=== PATIENT | male | born 1965 | race Caucasian/White ===

== ENCOUNTER 2017-05-03 09:48 | Inpatient (IN) | payer BC ==
[2017-05-03] VITALS (45 sets, daily range): BP systolic 82–129; BP diastolic 37–76
[~2017-05-03] VITALS: Ht 200.7 cm; Wt 235.4 kg
[2017-05-03] MEDS ORDERED: LOSA1TAB22 PO (10:12)
[2017-05-03] MEDS ORDERED: METF10002 PO (10:12)
[2017-05-03] MEDS ORDERED: GLYB5TAB3 PO ×2 (10:12)
--- NOTE | 2017-05-03 10:20 | NUR ---
ARRIVAL PATIENT ARRIVED TO ED5 AMBULATORY FROM URGENT CARE, SENT FOR PERIRECTAL ABCESS,FEVER AND SHORTNESS OF BREATH FOR THE PAST SEVERAL DAYS, URGENT CARE UNABLE TO ASSESS ABSCESS, SENT TO ED FOR FURTHER EVAL.
--- NOTE | 2017-05-03 10:28 | NUR ---
BLOOD CULTURE LAB IN ROOM TO DRAWN BLOOD CULTURES.
[2017-05-03] MEDS ORDERED: ZOSYN 4.5 GRAM VIAL 4.5 GM in NS 100ML 100 ML IV ONE (10:30)
[2017-05-03 10:41] LABS: BASOPHIL % 0.1 % (0.0-0.2); HEMOGLOBIN 16.8 g/dL (13.9-16.3); LYMPHOCYTES # 1.1 10^3/uL (1.0-4.8); LYMPHOCYTES % 3.7 % (24.0-44.0); MEAN CELL HGB 25.2 pg (26-34); MEAN CORP VOLUME 78.7 fL (78-100); MEAN PLATELET VOLUME 11.4 fL (7.8-11.0); MONOCYTES # 2.3 10^3/uL (0.3-0.8); MONOCYTES % 8.1 % (5.0-12.0); NEUTROPHIL # 24.9 10^3/uL (1.8-7.7); NEUTROPHILS % 87.4 % (41.0-85.0); RED CELL DISTRIBUTION WIDTH 18.7 % (11.5-14.5)
[2017-05-03 10:42] LABS: WHITE BLOOD CELL 28.5 10^3/uL (4.5-11.0)
[2017-05-03] MEDS ORDERED: NS 1000ML 1,000 ML ONE ×5 (10:44→14:23)
[2017-05-03] MEDS ORDERED: ZOSYN 4.5 GM IV ONE (10:44)
[2017-05-03] MEDS ORDERED: NS 100ML 100 ML IV ONE (10:44)
[2017-05-03] MEDS ORDERED: NS 1000ML 1,000 ML IV STA ×2 (10:53→12:50)
--- NOTE | 2017-05-03 10:55 | NUR ---
DR RANCHO LIRA ON PHONE WITH DR VICKERS
[2017-05-03 10:58] LABS: ABG PH 7.452 (7.350-7.450); BE(B) 2.2 mmol/L (-2.0-2.0); HCO3act 25.9 mmol/L (22.0-26.0); pO2 72.5 mmHg (75.0-100.0)
[2017-05-03 11:00] LABS: CALCIUM 9.2 mg/dL (8.4-10.5); CARBON DIOXIDE 24.1 mmol/L (20.0-32)
--- NOTE | 2017-05-03 11:21 | NUR ---
DR RANCHO VICKERS IN THE ED AT THIS TIME
[2017-05-03] MEDS ORDERED: NS 1000ML 1,000 ML IV ONE (11:30)
[2017-05-03] MEDS ORDERED: MOTRIN ONE (11:40)
--- NOTE | 2017-05-03 11:43 | NUR ---
US ORIANA, US, AT PT BEDSIDE FOR ULTRASOUND
--- NOTE | 2017-05-03 11:50 | NUR ---
DR CONSTANTIN LIRA ON PHONE WITH DR KILLIAN
--- NOTE | 2017-05-03 12:04 | ER.PDOC ---
General Chief Complaint: Skin Rash/Abscess Stated Complaint: BOIL Time seen by MD: 10:00 Source: patient History of Present Illness Initial Comments pt referred from clinic with perirectal abscess and fever Severity/Quality: moderate Prior symptoms/Treatment: No Similar symptoms previous, No Recenly Seen, No Treated by Doctor, No Recently Hospitalized Allergies: Coded Allergies: No Known Allergies (Unverified , 05/03/17) Home Meds Reported Medications Glyburide (GLYBURIDE) 5 Mg Tablet, 1 TAB PO DAILY24, #180 TAB 3 Refills 05/03/17 Glyburide (GLYBURIDE) 5 Mg Tablet, 1 TAB PO BID, #180 TAB 3 Refills 05/03/17 Losartan/Hydrochlorothiazide (LOSARTAN-HCTZ 100-25 MG TAB) 1 Each Tablet, 1 TAB PO DAILY, #90 TAB 3 Refills 05/03/17 Metformin Hcl (METFORMIN HCL) 1,000 Mg Tablet, 1 TAB PO BID, #180 TAB 3 Refills 05/03/17 Past Medical History Medical History: diabetes, hypertension Surgical History: appendectomy, knee Family History Significant Family History: no pertinent family hx Social History Smoking: non-smoker Alcohol Use: none Drug Use: none Reviewed Nursing Reviewed: Vital Signs, Abn. Noted, Nursing Assessment Constitutional: no symptoms reported EENTM: no symptoms reported Respiratory: no symptoms reported Cardiovascular: no symptoms reported ABD/GI (ROS): no symptoms reported Genitourinary: other (perineal and perirectal pain) Musculoskeletal: no symptoms reported Skin: no symptoms reported Psychiatric/Neurological: no symptoms reported Hematologic/Lymphatic: no symptoms reported All Other Systems: Reviewed and Negative Physical Exam General Appearance: Moderate Distress, Obese EENT: eyes nml inspection, nml ENT inspection, pharynx nml Neck: nml inspection, non-tender Respiratory: chest non-tender, lungs clear, normal breath sounds, no respiratory distress, no accessory muscle use Cardiovascular: Normal Peripheral Pulses, Regular Rate, Rhythm, No Edema, No Gallop, No JVD, No Murmur Gastrointestinal: Normal Bowel Sounds Rectal: Mass, Tenderness, Other (fullness at 9 and perirectal pain poorly r localized) Extremities: Normal Range of Motion, Non-Tender, Normal Inspection, No Pedal Edema, No Calf Tenderness, Normal Capillary Refill 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, No Motor/Sensory Deficits, Alert, Normal Mood/Affect, Oriented x 3 Skin: Normal Color, Warm/Dry Lymphatic: No Adenopathy Results/Orders Results/Orders Laboratory Tests Test 05/03/17 10:20 05/03/17 10:42 White Blood Count 28.5 10^3/uL (4.5-11.0) Red Blood Count 6.67 10^6/uL (4.50-5.90) Hemoglobin 16.8 g/dL (13.9-16.3) Hematocrit 52.5 % (37.0-53.0) Mean Corpuscular Volume 78.7 fL (78-100) Mean Corpuscular Hemoglobin 25.2 pg (26-34) Mean Corpuscular Hemoglobin Concent 32.0 g/dL (33-37) Red Cell Distribution Width 18.7 % (11.5-14.5) Platelet Count 241 10^3/uL (150-400) Mean Platelet Volume 11.4 fL (7.8-11.0) Neutrophils (%) (Auto) 87.4 % (41.0-85.0) Lymphocytes (%) (Auto) 3.7 % (24.0-44.0) Monocytes (%) (Auto) 8.1 % (5.0-12.0) Neutrophils # (Auto) 24.9 10^3/uL (1.8-7.7) Lymphocytes # (Auto) 1.1 10^3/uL (1.0-4.8) Monocytes # (Auto) 2.3 10^3/uL (0.3-0.8) Absolute Immature Granulocyte (auto 0.20 10^3 u/L (0-2) Eosinophils % 0.0 % (0.0-5.0) Basophils % 0.1 % (0.0-0.2) Basophils # 0.0 10^3/uL (0.0-0.1) Eosinophil Count 0.0 10^3/uL (0.0-0.2) Sodium Level 128 mmol/L (132-145) Potassium Level 4.4 mmol/L (3.6-5.2) Chloride Level 92.0 mmol/L (96-109) Carbon Dioxide Level 24.1 mmol/L (20.0-32) Anion Gap 16.3 Blood Urea Nitrogen 14 mg/dL (7-18) Creatinine 1.32 mg/dL (0.59-1.40) Estimated GFR () 69.8 (>/=60) BUN/Creatinine Ratio 10.0 Glucose Level 353 mg/dL (70-110) Calcium Level 9.2 mg/dL (8.4-10.5) Total Bilirubin 2.0 mg/dL (0.2-1.0) Aspartate Amino Transf (AST/SGOT) 14 U/L (0-35) Alanine Aminotransferase (ALT/SGPT) 23 U/L (12-78) Alkaline Phosphatase 84 U/L (50-136) Total Protein 8.1 g/dL (6.4-8.2) Albumin 3.0 g/dL (3.4-5.0) Globulin 5.1 Percent Immature Gran (Cell Imm) 0.70 % (0.00-0.50) Blood Gas Sample Site RT RADIAL ARTERY Blood Gas pH 7.452 (7.350-7.450) Blood Gas PCO2 38.0 mmHg (35.0-45.0) Blood Gas PO2 72.5 mmHg (75.0-100.0) Blood Gas HCO3 25.9 mmol/L (22.0-26.0) Blood Gas Base Excess 2.2 mmol/L (-2.0-2.0) Vernon Test POSITIVE Arterial Blood Oxygen Saturation 96.0 % (95-) Deoxyhemoglobin 3.7 % (0.2-0.6) Carboxyhemoglobin 6.0 % (0.5-1.5) Methemoglobin 0.5 % (0.2-0.6) Total Hemoglobin 18.9 % (13.5-17.5) Total Oxygen Concentration 23.8 % (13.5-17.5) Lactic Acid (Blood Gas) 2.9 MMOL/L (0.5-1.0) Blood Gas Temperature 37 Oxygen Delivery Method (LAB) NASAL CANNULA FiO2 28 % (20-101) Bicarbonate 27.1 mmol/L (23-27) Administered Medications Medications (Trade) Dose Ordered Sig/Rico Route PRN Reason Start Time Stop Time Status Last Admin Dose Admin Piperacillin Sod/ Tazobactam Sod 4.5 gm/Sodium Chloride 100 ml @ 100 mls/hr STAT ONCE IV 05/03/17 10:30 05/03/17 11:29 DC 05/03/17 10:53 Sodium Chloride 1,000 ml @ 1,200 mls/hr Q50M STAT IV 05/03/17 10:53 05/03/17 11:42 DC 05/03/17 10:57 Sodium Chloride 1,000 ml @ 999 mls/hr Q1H1M ONCE IV 05/03/17 11:30 05/03/17 12:30 05/03/17 11:50 Progress Progress discussed with Dr olivier who will see pt in ED spoke with Dr hernandez who will admit patient and [id number] with Dr Olivier consulting Departure Time of Disposition: 12:04 Disposition: 09 ADMITTED INPATIENT Impression: Primary Impression: Perirectal abscess Additional Impressions: Sepsis Diabetes type 2, uncontrolled Condition: Improved Referrals: SONNY BELL HEAD CHARRER (PCP) PRIMARY CARE PROVIDER Problem Qualifiers Additional Impressions: Sepsis Sepsis type: sepsis due to unspecified organism Qualified Codes: A41.9 - Sepsis, unspecified organism Diabetes type 2, uncontrolled Diabetes mellitus complication status: with hyperglycemia Diabetes mellitus watermelon harvesting supervisor insulin use: without watermelon harvesting supervisor use Qualified Codes: E11.65 - Type 2 diabetes mellitus with hyperglycemia IMMANUEL LIRA MD May 03, 2017 12:04
[2017-05-03 12:07] LABS: DIFFERENTIAL COMMENT NORMAL; LYMPHOCYTE 7 % (25-36); MONOCYTE 5 % (3-9); SEGMENTED NEUTROPHILS 88 % (31-76)
--- NOTE | 2017-05-03 12:09 | NUR ---
ASSESSMENT ADULT ASSESSMENT COMPLETE, PATIENT AWAITING TO GO TO THE OPERATING ROOM.
[2017-05-03] MEDS ORDERED: DIPRIVAN IV ONE (12:12)
[2017-05-03] MEDS ORDERED: XYLOCAINE ONE (12:12)
[2017-05-03] MEDS ORDERED: ZOFRAN ONE (12:12)
[2017-05-03] MEDS ORDERED: SUBLIMAZE ONE (12:12)
[2017-05-03] MEDS ORDERED: KENALOG-40 ONE (12:13)
--- NOTE | 2017-05-03 12:21 | DIREP ---
PROCEDURE:US PELVIS -soft tissues of right buttock COMPARISON:None. INDICATIONS:right sided perirectal abscess with fever and open wound TECHNIQUE:Ultrasound of the soft tissues of the right buttock were performed in area of clinical interest. FINDINGS:Ultrasound of the soft tissues of the right buttock in the area of clinical interest demonstrates a heterogeneous and complex hypoechoic structure or fluid collection most consistent with an abscess and/or complex fluid collection measuring 1.4 cm x 3.6 cm x 3.1 cm. CONCLUSION:There are findings of a 3.6 cm diameter heterogeneous and complex hypoechoic structure or fluid collection in the soft tissues of the right buttock and perirectal region in area of clinical interest most consistent with an abscess or complex fluid collection. Further evaluation can be performed with CT exam. Dictated by: Sebastian Fong M.D. on 05/03/2017 at 12:15 PM
[2017-05-03] MEDS ORDERED: MOTRIN PO STA (12:25)
--- NOTE | 2017-05-03 12:29 | NUR ---
CONSENT CONSENT SIGNED BY SPOUSE
[2017-05-03] MEDS ORDERED: LOVENOX SQ ONE (13:08)
[2017-05-03] MEDS ORDERED: SODIUM CHLORIDE IR ONE (13:37)
--- NOTE | 2017-05-03 14:17 | PCM.EKG ---
[facility] Test Date: 2017-05-03 Test Time: 14:15:35 Pat Name: ELPIDIO LEONE Department: Room: ICU4 A Gender: M [employer] Coach: RT : 1965 Requested By: KIRSTEN WALKER Order Number: [id number] Reading MD: Kevin Lawson Measurements Intervals [place] Rate: 110 P: -21 MN: 134 QRS: -77 QRSD: 154 T: 13 QT: 390 QTc: 527 Interpretive Statements Sinus tachycardia Right bundle branch block Left anterior fascicular block Bifascicular block Abnormal ECG No previous ECG available for comparison Electronically Signed On 05-06-2017 10:05:31 PIPE FITTER SOFT COPPER by Kevin Lawson Please click the below link to view image of tracing.
[2017-05-03] MEDS ORDERED: MORPHINE SULFATE IV PRN (14:30)
[2017-05-03] MEDS ORDERED: SUBLIMAZE IV PRN (14:30)
--- NOTE | 2017-05-03 14:38 | NUR ---
ADMIT TO ICU PATIENT TO ROOM ICU 4 VIA BED ACCOMPANIED BY RN X2. PORTABLE OXYGEN AT 3L/NC. PATIENT AWAKE, ALERT, ORIENTED. PATIENT MOVED SELF TO [place]BINO BED LATERALLY WITHOUT DIFFICULTY. IV PATENT AND INTACT. REPORT RECEIVED, ASSUME CARE.
[2017-05-03] MEDS: NS 1000ML 1,000 ML IV SCH ×3 (15:00→21:17)
[2017-05-03] MEDS: PROTONIX IV IV SCH (15:59)
[2017-05-03] MEDS: ZOSYN 3.375 GM/50 ML 50 ML IV SCH ×3 (16:07→23:50)
[2017-05-03] MEDS: HUMULIN R SQ SCH ×2 (17:05→21:16)
--- NOTE | 2017-05-03 17:15 | NUR ---
SEPSIS RECEIVED CALL REGARDING NEED FOR LACTIC ACID LEVEL AND TO HYDRATE PATIENT WITH 3 ADDITIONAL LITERS OF NS. VERIFIED ORDERS WITH Bryson RANDALL NP AND DR. IKLLIAN. ORDERS IMPLEMENTED.
--- NOTE | 2017-05-03 17:20 | NUR ---
LACTIC ACID INABILITY TO OBTAIN LACTIC LEVEL AT THIS TIME VIA RT. WILL REATTEMPT.
[2017-05-03] MEDS ORDERED: NS IV SCH (17:30)
[2017-05-03] MEDS ORDERED: ZOSYN 3.375 GM/50 ML 50 ML IV SCH (18:00)
--- NOTE | 2017-05-03 18:29 | OPH ---
DATE OF SURGERY: PREOPERATIVE DIAGNOSIS: Right buttock abscess. POSTOPERATIVE DIAGNOSIS: Necrotizing acute soft tissue infection of the right buttocks as well as diabetes and morbid obesity. SURGEON: Lg Rubin DO BIN FILLER: Operating Room staff ANESTHESIA: General, by Bhavesh Sutton CRNA PROCEDURES PERFORMED: Incision and drainage of abscess with debridement of necrotizing acute soft tissue infection. SPECIMENS: Cultures to Pathology as well as necrotic tissue to Pathology. ESTIMATED BLOOD LOSS: 50 mL COUNTS: At the completion of the case, the counts were correct per the Operating Room staff. DESCRIPTION OF PROCEDURE: The patient is a 51-year-old male, known from previous evaluation. Prior to procedure, informed consent was obtained. At the time of the procedure, he was taken to the operative suite and placed in the supine position. After general anesthesia was obtained, he was repositioned on the operative bed in the right lateral recumbent position. Next, with adequate exposure, he was prepped and draped. Palpation of the soft tissues showed a small opening inferiorly, that was extended with a scalpel, and there was noted a tunneling superiorly and laterally. Once the superior aspect was identified by blunt probing, it was opened sharply as well. Due to the volume of the necrotic tissue identified in the superior aspect of the wound, the incision was extended. Any identifiable necrotic tissue was subsequently removed using sharp scissors. Cultures of the deep tissues and purulent fluid were obtained. Cultures were obtained and necrotic tissue was removed. Any bleeding that was identified was controlled with electrocautery. After extensive debridement of this necrotic subcutaneous tissue, it was noted to be down to the fat, however, there was no apparent involvement superiorly towards the rectum or deep to the fascia. Subsequently, the wound was copiously irrigated. After adequate irrigation, it was packed with a 2 inch iodoform gauze. A dressing was applied and the drapes were removed. The patient was returned to the supine position and to his bed and he was delivered to the recovery room after being awakened by the Department of Anesthesia in a stable condition. The patient tolerated these procedures well and there was no acute complication noted. Lg Rubin DO DR: MIKE/hai JOB# [id number] CC: Maite Lawson MD
--- NOTE | 2017-05-03 18:36 | NUR ---
REPORT REPORT TO ONCOMING SHIFT, RELINQUISH CARE.
[2017-05-03 18:42] LABS: ABG PCO2 24.6 mmHg (35.0-45.0); ABG PH 7.156 (7.350-7.450); BE(B) -18.5 mmol/L (-2.0-2.0); HCO3act 8.5 mmol/L (22.0-26.0); pO2 41.3 mmHg (75.0-100.0)
--- NOTE | 2017-05-03 18:45 | NUR ---
Report Report received from previous shift. Assumed care.
--- NOTE | 2017-05-03 20:00 | NUR ---
Mercedes Inserted 16 Fr. mercedes catheter inserted under sterile technique, yellow clear urine returned, 10cc of saline used to inflate balloon. Stat lock applied to right leg. Drainage bag attached to bed below level of bladder. UA obtained and sent to lab.
[2017-05-03 20:32] LABS: ABG PCO2 50.3 mmHg (35.0-45.0); ABG PH 7.284 (7.350-7.450); BE(B) -3.9 mmol/L (-2.0-2.0); HCO3act 23.3 mmol/L (22.0-26.0); pO2 89.5 mmHg (75.0-100.0)
[2017-05-03 20:46] LABS: BILIRUBIN,URINE NEGATIVE (NEGATIVE); UROBILINOGEN,URINE NORMAL (NEGATIVE)
[2017-05-03 21:17] LABS: APPEARANCE,URINE CLEAR (CLEAR); UA COLOR YELLOW (YELLOW); WBC,URINE 0-2 WBC/HPF (0-2)
[2017-05-03] MEDS: LOVENOX SQ SCH (21:17)
[2017-05-04] VITALS (52 sets, daily range): BP systolic 92–149; BP diastolic 41–80
[2017-05-04 05:25] LABS: BASOPHIL % 0.1 % (0.0-0.2); HEMOGLOBIN 15.2 g/dL (13.9-16.3); LYMPHOCYTES # 1.4 10^3/uL (1.0-4.8); LYMPHOCYTES % 4.5 % (24.0-44.0); MEAN CELL HGB CONCENTRATION 29.7 g/dL (33-37); MEAN CORP VOLUME 84.3 fL (78-100); MEAN PLATELET VOLUME 10.8 fL (7.8-11.0); MONOCYTES # 2.4 10^3/uL (0.3-0.8); MONOCYTES % 7.7 % (5.0-12.0); NEUTROPHIL # 26.8 10^3/uL (1.8-7.7); RED CELL DISTRIBUTION WIDTH 19.2 % (11.5-14.5)
[2017-05-04 05:40] LABS: WHITE BLOOD CELL 30.8 10^3/uL (4.5-11.0)
[2017-05-04 06:02] LABS: BAND NEUTROPHILS 3 % (2-6); LYMPHOCYTE 5 % (25-36); MONOCYTE 6 % (3-9); SEGMENTED NEUTROPHILS 86 % (31-76)
[2017-05-04] MEDS: ZOSYN 3.375 GM/50 ML 50 ML IV SCH ×4 (06:08→23:43)
[2017-05-04 06:14] LABS: CALCIUM 7.9 mg/dL (8.4-10.5); CARBON DIOXIDE 28.5 mmol/L (20.0-32); CHOLESTEROL 73 mg/dL (120-240); GLUCOSE 193 mg/dL (70-110); HDL CHOLESTEROL 15 mg/dL (32-96)
--- NOTE | 2017-05-04 06:23 | CNH ---
DATE OF CONSULTATION: CHIEF COMPLAINT: Soft tissue infection of the right buttock. HISTORY OF PRESENT ILLNESS: This is a 51-year-old male who was seen in the ER at [facility]. He reported that he started noticing pain in his right buttock approximately 2 days ago; it was increasing in severity in the last few days. He had fevers at home as high as 101.9 degrees Fahrenheit and associated chills that improved with Tylenol. He did not know of any confirmed trauma or injury, however, he considered the possibility of having an injury from a toilet seat, per his report. Otherwise, he cannot report any obvious injury. He denies any related symptoms or similar symptoms in the past. He was seen by his PCP today and sent to the ER at [facility]. PAST MEDICAL HISTORY: Diabetes for 6 to 7 years and hypertension for a long time per his report. PAST SURGICAL HISTORY: Appendectomy, and left knee surgery 4 to 5 years ago. ALLERGIES: NO KNOWN DRUG ALLERGIES. SOCIAL HISTORY: Positive for smoked tobacco for greater than 35 years. He admitted to rare alcohol use. He denied illicit drug use. FAMILY HISTORY: Mother is at age 57 from overdose of prescription meds. Father is unknown. 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 HOME MEDICATIONS LIST: He reports metformin 1000 mg p.o. b.i.d., glyburide 10 mg p.o. daily, losartan/hydrochlorothiazide 100/25 one p.o. daily. He also takes a vitamin D3 supplement. REVIEW OF SYSTEMS: CONSTITUTIONAL: Positive for fever and chills. No reported weakness. ENDOCRINE: He denied thyroid disease. He is known to have diabetes. CARDIOVASCULAR: No chest pain or trouble breathing. PULMONARY: No dyspnea or cough. ABDOMEN: He denied any nausea, vomiting, or abdominal pain. MUSCULOSKELETAL: No acute complaints. SKIN AND INTEGUMENT: He does have significant pain in the right buttock. PHYSICAL EXAMINATION: VITAL SIGNS: This is an afebrile male whose heart rate was over 110 at the time of my initial assessment. His initial systolic was 84, but after IV fluid, it has improved to greater than 120 mmHg. Respiratory rate is 24 and O2 saturation is in the 90s on room air. GENERAL APPEARANCE: A pleasant 51-year-old male in no acute distress, but is somewhat uncomfortable. HEENT: Normocephalic and atraumatic, with chronic changes. NECK: Supple and soft. Trachea is midline. He has no JVD or thyromegaly. HEART: Essentially regular rate and rhythm, increased rate. PULMONARY: The lungs were clear anteriorly, bilaterally. ABDOMEN: Bowel sounds are positive, it is soft. He has no tenderness on exam. EXTREMITIES: Positive radial pulse and positive dorsalis pedal pulse bilaterally. SKIN and INTEGUMENTARY: He is noted to have significant tenderness on the right buttock, away from the anus. NEUROLOGIC: No acute findings. LABORATORY STUDIES: White count today is 28.5, hemoglobin 16.8, platelet count 241. Chemistry shows BUN of 14, creatinine 1.42. Coagulation studies show PT of 12.3, PTT of 27.3. Blood gas shows pH 7.45, pCO2 of 38, pO2 of 72.5. His lactic acid is 2.9. IMAGING DATA: He did have an ultrasound that showed findings consistent with an abscess. It was recommended by Radiology that he have a CT scan, however, due to the habitus, this patient is unable to have a CAT scan at our facility. His reported height is 6 feet and 7 inches and reported weight is 495 pounds. Per computer, his weight is 224.5 kilos. SURGICAL ASSESSMENT: 1. Right buttocks abscess with possible associated necrotizing infection. 2. Sepsis secondary to #1. 3. Diabetes. 4. Hypertension. 5. Morbid obesity. PLAN: The patient was seen and examined in the ER and his chart was reviewed. Once the ultrasound is completed, he will go to the OR for an incision and drainage and also all indicated procedures. Lg Rubin DO DR: MIKE/hai JOB# [id number] CC: Maite Lawson MD MTDD
--- NOTE | 2017-05-04 07:02 | NUR ---
Report Report given to oncoming shift, relinquished care.
--- NOTE | 2017-05-04 07:05 | NUR ---
REPORT REPORT RECEIVED, ASSUME CARE. PATIENT VOICES HEADACHE. CALL LIGHT IN REACH.
--- NOTE | 2017-05-04 07:35 | NUR ---
WOUND CARE DR. WHITE AT BEDSIDE TO PERFORM WOUND CARE. ASSISTED BY ROSALVA CRAIN. PATIENT TOLERATED WELL.
[2017-05-04] MEDS ORDERED: TYLENOL PO PRN (08:00)
[2017-05-04] MEDS: HUMULIN R SQ SCH ×4 (08:02→20:36)
--- NOTE | 2017-05-04 08:04 | PRM.PN ---
Progress Note Subjective Date: May 04, 2017 Time: 08:00 Physician Notes: s/p incision and drainage of large right buttock abscess. Patient feels OK except for a headache. Pain in the operative site is not bad. Objective Review IO, Exams,& Results Problems Acute/Active Problems: (1) Diabetes type 2, uncontrolled (2) Perirectal abscess (3) Sepsis Vital Signs Date Time Temp Pulse Resp B/P (MAP) Pulse Ox O2 Delivery O2 Flow Rate FiO2 05/04/17 05:45 98.1 105 116/58 (77) 90 05/04/17 05:15 82 05/04/17 04:00 Nasal Cannula 4.00 Intake and Output 05/04/17 07:00 Intake Total 9961 ml Output Total 1900 ml Balance 8061 ml Intake Oral 680 ml IV Total 7281 ml Other 2000 ml Output Urine Total 1900 ml Laboratory Tests Test 05/03/17 10:20 05/03/17 10:30 05/03/17 10:42 05/03/17 10:43 White Blood Count 28.5 10^3/uL Red Blood Count 6.67 10^6/uL Hemoglobin 16.8 g/dL Hematocrit 52.5 % Mean Corpuscular Volume 78.7 fL Mean Corpuscular Hemoglobin 25.2 pg Mean Corpuscular Hemoglobin Concent 32.0 g/dL Red Cell Distribution Width 18.7 % Platelet Count 241 10^3/uL Mean Platelet Volume 11.4 fL Neutrophils (%) (Auto) 87.4 % Lymphocytes (%) (Auto) 3.7 % Monocytes (%) (Auto) 8.1 % Neutrophils # (Auto) 24.9 10^3/uL Lymphocytes # (Auto) 1.1 10^3/uL Monocytes # (Auto) 2.3 10^3/uL Absolute Immature Granulocyte (auto 0.20 10^3 u/L Eosinophils % 0.0 % Basophils % 0.1 % Basophils # 0.0 10^3/uL Eosinophil Count 0.0 10^3/uL Sodium Level 128 mmol/L Potassium Level 4.4 mmol/L Chloride Level 92.0 mmol/L Carbon Dioxide Level 24.1 mmol/L Anion Gap 16.3 Blood Urea Nitrogen 14 mg/dL Creatinine 1.32 mg/dL Estimated GFR () 69.8 BUN/Creatinine Ratio 10.0 Glucose Level 353 mg/dL Calcium Level 9.2 mg/dL Total Bilirubin 2.0 mg/dL Aspartate Amino Transf (AST/SGOT) 14 U/L Alanine Aminotransferase (ALT/SGPT) 23 U/L Alkaline Phosphatase 84 U/L Total Protein 8.1 g/dL Albumin 3.0 g/dL Globulin 5.1 Percent Immature Gran (Cell Imm) 0.70 % Prothrombin Time 12.3 SEC Prothrombin Time INR (Non-Therap) 1.2 Activated Partial Thromboplast Time 27.3 SEC Blood Gas Sample Site RT RADIAL ARTERY Blood Gas pH 7.452 Blood Gas PCO2 38.0 mmHg Blood Gas PO2 72.5 mmHg Blood Gas HCO3 25.9 mmol/L Blood Gas Base Excess 2.2 mmol/L Vernon Test POSITIVE Arterial Blood Oxygen Saturation 96.0 % Deoxyhemoglobin 3.7 % Carboxyhemoglobin 6.0 % Methemoglobin 0.5 % Total Hemoglobin 18.9 % Total Oxygen Concentration 23.8 % Lactic Acid (Blood Gas) 2.9 MMOL/L Blood Gas Temperature 37 Oxygen Delivery Method (LAB) NASAL CANNULA FiO2 28 % Bicarbonate 27.1 mmol/L Differential Total Cells Counted 100 #CELLS Segmented Neutrophils 88 % Lymphocytes 7 % Monocytes 5 % Differential Comment NORMAL Platelet Estimate ADEQUATE Platelet Morphology NORMAL Blood Morphology Comment NORMAL MORPHOLOGY Test 05/03/17 18:18 05/03/17 19:15 05/03/17 20:20 05/03/17 20:34 Blood Gas Sample Site RT RADIAL ARTERY RT RADIAL ARTERY Blood Gas pH 7.156 7.284 Blood Gas PCO2 24.6 mmHg 50.3 mmHg Blood Gas PO2 41.3 mmHg 89.5 mmHg Blood Gas HCO3 8.5 mmol/L 23.3 mmol/L Blood Gas Base Excess -18.5 mmol/L -3.9 mmol/L Vernon Test POSITIVE POSITIVE Arterial Blood Oxygen Saturation 66.5 % 96.7 % Deoxyhemoglobin 31.3 % 3.1 % Carboxyhemoglobin 4.6 % 4.5 % Methemoglobin 2.1 % 0.5 % Total Hemoglobin 4.3 % 16.5 % Total Oxygen Concentration 3.8 % 21.4 % Lactic Acid (Blood Gas) 0.3 MMOL/L 1.5 MMOL/L Blood Gas Temperature 37 Oxygen Delivery Method (LAB) NASAL CANNULA NASAL CANNULA FiO2 36 % 36 % Bicarbonate 9.2 mmol/L 24.9 mmol/L Hemoglobin 15.0 g/dL Hematocrit 48.8 % Urine Collection Type UNKNOWN Urine Color YELLOW Urine Appearance CLEAR Urine Bilirubin NEGATIVE MG/DL Urine Ketones NEGATIVE Urine Specific Roscoe 1.015 Urine pH 5 Urine Protein 15 mg/dL Urine Urobilinogen NORMAL Urine Nitrate NEGATIVE Urine Leukocyte Esterase NEGATIVE Urine Blood NEGATIVE Urine RBC NONE SEEN RBC/HPF Urine WBC 0-2 WBC/HPF Urine Squamous Epithelial Cells RARE #/HPF Urine Amorphous Sediment MODERATE Urine Bacteria NONE SEEN Urine Fine Granular Casts 0-1 Urine Glucose NORMAL Test 05/04/17 05:10 05/04/17 05:41 White Blood Count 30.8 10^3/uL Red Blood Count 6.07 10^6/uL Hemoglobin 15.2 g/dL Hematocrit 51.2 % Mean Corpuscular Volume 84.3 fL Mean Corpuscular Hemoglobin 25.0 pg Mean Corpuscular Hemoglobin Concent 29.7 g/dL Red Cell Distribution Width 19.2 % Platelet Count 209 10^3/uL Mean Platelet Volume 10.8 fL Neutrophils (%) (Auto) 87.0 % Lymphocytes (%) (Auto) 4.5 % Monocytes (%) (Auto) 7.7 % Neutrophils # (Auto) 26.8 10^3/uL Lymphocytes # (Auto) 1.4 10^3/uL Monocytes # (Auto) 2.4 10^3/uL Absolute Immature Granulocyte (auto 0.22 10^3 u/L Eosinophils % 0.0 % Basophils % 0.1 % Basophils # 0.0 10^3/uL Eosinophil Count 0.0 10^3/uL Sodium Level 134 mmol/L Potassium Level 4.8 mmol/L Chloride Level 99.0 mmol/L Carbon Dioxide Level 28.5 mmol/L Glucose Level 193 mg/dL Blood Urea Nitrogen 17 mg/dL Creatinine 1.43 mg/dL Calcium Level 7.9 mg/dL Anion Gap 11.3 Estimated GFR () 63.6 BUN/Creatinine Ratio 11.0 Hemoglobin A1c 9.4 % Total Creatine Kinase 77 U/L Creatine Kinase MB 0.8 ng/mL Troponin I < 0.02 ng/mL Pro-B-Type Natriuretic Peptide 874 pg/mL Triglycerides Level 97 mg/dL Cholesterol Level 73 mg/dL LDL Cholesterol, Calculated 38.6 VLDL Cholesterol 19.4 HDL Cholesterol 15 mg/dL Cholesterol Ratio (LDL/HDL) 2.5 Cholesterol/HDL Ratio 4.995508 Thyroid Stimulating Hormone (TSH) 3.571 mIU/mL Percent Immature Gran (Cell Imm) 0.70 % Differential Total Cells Counted 100 #CELLS Segmented Neutrophils 86 % Band Neutrophils 3 % Lymphocytes 5 % Monocytes 6 % Platelet Estimate ADEQUATE Platelet Morphology NORMAL Blood Morphology Comment NORMAL MORPHOLOGY Current Medications Medications (Trade) Dose Ordered Sig/Rico PRN Reason Start Time Stop Time Status Last Admin Acetaminophen/ Hydrocodone Bitart ([place] 10mg) 1 each Q6H PRN PAIN 05/03/17 14:30 06/02/17 14:29 Enoxaparin Sodium (Lovenox) 100 mg BID 05/03/17 21:00 06/02/17 20:59 UNV 05/03/17 21:17 Fentanyl Citrate (Sublimaze) 25 mcg Q5MIN PRN PAIN 05/03/17 14:30 05/04/17 14:29 Hydrochlorothiazide (Hydrochlorothiazide) 25 mg DAILY 05/04/17 09:00 06/03/17 08:59 UNV Insulin Human Regular (Humulin R) 1 unit ACHS 05/03/17 17:30 06/02/17 17:29 UNV 05/03/17 21:16 Losartan Potassium (Cozaar) 100 mg DAILY 05/04/17 09:00 06/03/17 08:59 UNV Morphine Sulfate (Morphine Sulfate) 4 mg Q4H PRN PAIN 05/03/17 14:30 06/02/17 14:29 Pantoprazole Sodium (Protonix Iv) 40 mg DAILY 05/03/17 14:30 06/02/17 14:29 05/03/17 15:59 Piperacillin/ Tazobactam/ Dextrose 50 ml @ 50 mls/hr Q6 05/03/17 16:00 06/02/17 15:59 UNV 05/04/17 06:08 Sodium Chloride 1,000 ml @ 100 mls/hr Q10H 05/03/17 15:00 06/02/17 14:59 UNV 05/03/17 21:17 Sodium Chloride 6,736 ml @ 3,368 mls/hr OT 05/03/17 17:30 06/02/17 17:29 UNV Heart: Regular rate, Other (Heart rate is 110/m) Abdomen: Soft, No tenderness Lungs: Normal air movement Skin: Other (The right buttock dressing changed. Wound looks clean. Dressing was saturated. Cavity packed with Iodoform gauze. ) Assessment & Plan: Assessment Stable, though still has mild tachycardia and WBC is high at 30,000. Plan 1) Continue regular dressing changes. 2) Consider adding Vancomycin and Flagyl. 3) Consider reducing Lovenox if medically OK. CHRISTAL WHITE MD May 04, 2017 08:04
--- NOTE | 2017-05-04 08:15 | NUR ---
ASSESSMENT/MEDICATION ASSESSMENT COMPLETE CHARTED AND MEDICATIONS ADMINISTERED PER MAR. PATIENT VOICES HEADACHE, REQUESTS TYLENOL. REFUSED NARCOTIC PAIN MEDICATION. PER PATIENT REQUEST, SHADES CLOSED, AND DOOR CLOSED. CALL LIGHT IN REACH.
[2017-05-04] MEDS: COZAAR PO SCH (08:27)
[2017-05-04] MEDS: HYDROCHLOROTHIAZIDE PO SCH (08:27)
[2017-05-04] MEDS: PROTONIX IV IV SCH (08:28)
[2017-05-04] MEDS: LOVENOX SQ SCH (08:28)
--- NOTE | 2017-05-04 09:04 | NUR ---
DR. CONSTANTIN KILLIAN AT BEDSIDE. ORDERS RECEIVED TO INCREASE IV RATE TO 150 ML/HR.
[2017-05-04] MEDS: NS 1000ML 1,000 ML IV SCH ×2 (09:32→17:35)
--- NOTE | 2017-05-04 09:42 | NUR ---
SLEEPING PATIENT SLEEPING, NO SIGNS OF DISTRESS. RESPIRATIONS EVEN, AUDIBLE SNORING NOTED. OXYGEN INCREASED TO 4L/NC; SPO2 70%.
--- NOTE | 2017-05-04 10:16 | NUR ---
DISCHARGE BODY RELEASED TO [facility]. DAUGHTER WAS GIVEN PATIENT'S EARRINGS, GLASSES, NECKLACE, BRA, AND A RING (REMOVED AT THIS TIME FROM PATIENT'S RIGHT RING FINGER BY JENNIFER SHAHID). NO OTHER PERSONAL EFFECTS WERE AT BEDSIDE. Addendum: 05/04/17 at 1020 by ROSALVA Ta COUNTERINTELLIGENCE SPECIALIST WRONG CHART
--- NOTE | 2017-05-04 11:05 | PCM.HP ---
History of Present Illness Reason for Visit: Rectal abscess History of Present Illness This is a 51-year-old male who was seen in the ER for pain in his right buttock approximately 2 days ago; it was increasing in severity. He had fevers at home as high as 101.9 degrees Fahrenheit and associated chills that improved with Tylenol. He has had diabetes for 6 to 7 years and hypertension. He is a smoker for more than 35 years. Past Medical History Cardiac: HTN Pulmonary: Other (Smoker) Past Social History Smoke: 1 pack per day Alcohol: social Lives: with Family Travel Hx EBOLA RISK:Travel to/contact w: No Is pt experiencing any Ebola s: No Review of Systems Constitutional: Fever, Chills Gastrointestinal: Other (perirectal pain) Allergies: Coded Allergies: No Known Allergies (Unverified , 05/03/17) Scheduled Glyburide (Glyburide), 1 TAB PO BID, (Reported) Glyburide (Glyburide), 1 TAB PO DAILY24, (Reported) Losartan/Hydrochlorothiazide (Losartan-Hctz 100-25 Mg Tab), 1 TAB PO DAILY, ( Reported) Metformin Hcl (Metformin Hcl), 1 TAB PO BID, (Reported) VTE VTE Risk Total Score: 5 VTE Risk Score VTE Risk: Score 0-1 = Low Risk (Aggressive mobilization; early ambulation; no VTE prophylaxis required) Score 2: Moderate Risk (Intermittent/Pneumatic Compression Device OR Lovenox/Heparin/Coumadin) Score 3-4: High Risk (Intermittent/Pneumatic Compression Device AND Lovenox/Heparin/Coumadin) Score > or =5: Highest Risk (Intermittent/Pneumatic Compression Device AND Lovenox/Heparin/Coumadin) VTE VTE Present on Admission: No Currently receiving anticoagul: No VTE Risk Total Score: 5 Exam Vital Signs Vital Signs Date Time Temp Pulse Resp B/P (MAP) Pulse Ox O2 Delivery O2 Flow Rate FiO2 05/04/17 09:10 103 82 91 Nasal Cannula 4.00 05/04/17 08:27 121/70 05/04/17 05:45 98.1 General Appearance: Alert, Oriented X3, Cooperative, No acute distress Respiratory: Clear to auscultation Cardiovascular: Regular rate Extremities: No cyanosis Neuro: Normal speech, Normal tone Psych/Mental Status: Mental status NL, Mood NL Assessment/Plan Assessment/Plan Problems: (1) Sepsis Status: Acute COMPLICATION TYPE: W/ ACUTE EXACERBATION ICD Code: A41.9 - Sepsis, unspecified organism SNOMED: 86301994 (2) Diabetes type 2, uncontrolled Status: Acute ICD Code: E11.65 - Type 2 diabetes mellitus with hyperglycemia SNOMED: 39454249, 717016591 (3) Perirectal abscess Status: Acute SEVERITY: MODERATE PERSISTENT COMPLICATION TYPE: W/ ACUTE EXACERBATION ICD Code: K61.1 - Rectal abscess SNOMED: 57836848, [id number] Patient History: Patient reports no known family medical history. Plan Surgical intervention was done 05/03/2017 and patient was admitted to ICU in bariatric bed. Diet has been advanced. Continue with IV antibiotics, fever control Patient has dressing changes BID and PRN soiling. Will continue with medical management to assist with surgical service. Problem Qualifiers (1) Sepsis: Sepsis type: sepsis due to unspecified organism Qualified Codes: A41.9 - Sepsis, unspecified organism (2) Diabetes type 2, uncontrolled: Diabetes mellitus complication status: with hyperglycemia Diabetes mellitus calender worker helper insulin use: without calender worker helper use Qualified Codes: E11.65 - Type 2 diabetes mellitus with hyperglycemia DAVINA RANDALL APRN,DEN May 04, 2017 11:05
--- NOTE | 2017-05-04 13:36 | NUR ---
ACTIVITY PATIENT ASSISTED TO STAND AT BEDSIDE PER REQUEST. TOLERATED WELL. DRESSING TO RIGHT BUTTOCK CLEAN, DRY, INTACT. PATIENT REQUESTS TO HAVE OXYGEN DECREASED. CURRENTLY AT 4L/NC. PATIENT VOICES INCREASED HEADACHE DUE TO OXYGEN. EDUCATION PROVIDED FOR OXYGEN, SPO2 READING. PATIENT VOICES HAVING HAD A SLEEP STUDY PERFORMED SEVERAL YEARS AGO, THOUGH REFUSES TO WEAR A MASK FOR CPAP DUE TO DISCOMFORT. EDUCATION PROVIDED REGARDING CPAP AND MASK STYLES. PROVIDED WRITTEN EDUCATION MATERIALS. OXYGEN DECREASED TO 2L/NC AND HUMIDITY APPLIED PER PATIENT REQUEST. CALL LIGHT IN REACH.
--- NOTE | 2017-05-04 14:04 | NUR ---
OXYGEN INCREASED OXYGEN TO 2L/NC SPO2 79%. PATIENT SLEEPING. CALL LIGHT IN REACH.
--- NOTE | 2017-05-04 15:33 | NUR ---
STATUS PATIENT SLEEPING, RESPIRATIONS EVEN WITH AUDIBLE SNORING, OXYGEN ON. CALL LIGHT IN REACH.
[2017-05-04] MEDS: NORCO 10MG PO PRN (16:36)
--- NOTE | 2017-05-04 17:25 | NUR ---
ACTIVITY PATIENT ASSISTED TO EDGE OF BED PER REQUEST FOR MEAL. VOICES NAUSEA. ORDER RECEIVED FOR ZOFRAN AND ADMINISTERED.
[2017-05-04] MEDS: ZOFRAN IV PRN (17:34)
--- NOTE | 2017-05-04 17:55 | NUR ---
DR. CINDY WHITE ON UNIT FOR ROUNDS; PATIENT ASLEEP. UPDATED ON HEADACHE, NAUSEA, AND DECREASED SPO2 ORDERS RECEIVED.
[2017-05-04] MEDS ORDERED: MOTRIN PO STA (17:57)
[2017-05-04] MEDS ORDERED: VANCOMYCIN HCL 1 GM ONE (18:12)
[2017-05-04] MEDS ORDERED: NS 250ML 250 ML IV ONE (18:12)
--- NOTE | 2017-05-04 18:33 | NUR ---
MEDICATIONS MEDICATIONS ADMINISTERED PER MAR. PATIENT UPDATED ON PLAN OF CARE AND NEW ORDERS FOLLOWING PHYSICIAN ROUNDS. CALL LIGHT IN REACH. PATIENT REQUESTS STAFF TO CALL TO UPDATE ON PLAN OF CARE WITH POSSIBLE SURGERY IN THE MORNING.
--- NOTE | 2017-05-04 18:45 | NUR ---
Report received from previous shift, assumed care.
[2017-05-04] MEDS: FLAGYL 500MG/ 100 ML NS 100 ML IV SCH ×3 (18:51→22:00)
--- NOTE | 2017-05-04 19:06 | NUR ---
FAMILY NOTIFICATION PER PATIENT REQUEST, VIKTORIYA, PATIENT'S NOTIFIED OF DR. TRUJILLO NEW ORDERS AND POSSIBILITY OF SURGERY IN AM. VOICED UNDERSTANDING, QUESTIONS ADDRESSED.
[2017-05-04] MEDS ORDERED: VANCOMYCIN IV SCH (20:00)
[2017-05-04] MEDS ORDERED: NS IV SCH (20:00)
[2017-05-04] MEDS: VANCOMYCIN IV SCH (22:18)
[2017-05-04] MEDS: NS IV SCH (22:18)
--- NOTE | 2017-05-04 23:00 | NUR ---
Wound Care Patients dressing changed using 2" iodoform packing, ABD pad. Small serosanguineous drainage noted. Patient denies any pain.
[2017-05-05] VITALS (24 sets, daily range): BP systolic 90–157; BP diastolic 52–100
--- NOTE | 2017-05-05 00:30 | NUR ---
Oxygen Patients O2 sat drops to low 70s when asleep. Patient given nonrebreather mask and instructed to wear while sleeping, patient verbalized understanding. O2 sat improved to 95% while asleep while wearing mask.
--- NOTE | 2017-05-05 02:30 | NUR ---
Patient sleeping Patient asleep, no s/s of distress noted. O2 sat 96% on oxygen mask.
[2017-05-05] MEDS: NS 1000ML 1,000 ML IV SCH (04:54)
[2017-05-05] MEDS: FLAGYL 500MG/ 100 ML NS 100 ML IV SCH ×3 (04:55→21:20)
--- NOTE | 2017-05-05 05:00 | NUR ---
Lab Lab in room collecting AM labs, no s/s of distress noted.
[2017-05-05 05:05] LABS: BASOPHIL % 0.1 % (0.0-0.2); EOSINOPHIL # 0.1 10^3/uL (0.0-0.2); EOSINOPHIL % 0.2 % (0.0-5.0); HEMOGLOBIN 14.9 g/dL (13.9-16.3); LYMPHOCYTES % 3.8 % (24.0-44.0); MEAN CELL HGB CONCENTRATION 28.8 g/dL (33-37); MEAN CORP VOLUME 86.9 fL (78-100); MONOCYTES # 1.9 10^3/uL (0.3-0.8); MONOCYTES % 7.7 % (5.0-12.0); NEUTROPHIL # 22.1 10^3/uL (1.8-7.7); NEUTROPHILS % 87.5 % (41.0-85.0); RED CELL DISTRIBUTION WIDTH 19.2 % (11.5-14.5)
[2017-05-05 05:13] LABS: WHITE BLOOD CELL 25.2 10^3/uL (4.5-11.0)
[2017-05-05 05:42] LABS: CARBON DIOXIDE 29.2 mmol/L (20.0-32)
--- NOTE | 2017-05-05 05:45 | NUR ---
Potassium Patient's potassium level is 6, Dr. Lawson notified, no orders received at this time. Will pass along on oncoming shift.
[2017-05-05] MEDS: ZOSYN 3.375 GM/50 ML 50 ML IV SCH ×3 (06:11→17:55)
--- NOTE | 2017-05-05 06:34 | NUR ---
Report Report given to oncoming shift, relinquished care.
--- NOTE | 2017-05-05 06:35 | NUR ---
REPORT RECEIVED FROM PREVIOUS SHIFT. ASSUMED CARE OF PATIENT.
--- NOTE | 2017-05-05 07:40 | NUR ---
DR. WHITE AT BEDSIDE TO CHANGE DRESSING. DRESSING CHANGED BY DR. WHITE. ORDERS GIVEN FOR PATIENT TO BE TAKEN OFF NPO STATUS AND PLACED ON 1800 ADA DIET. PATIENT TO USE INCENTIVE SPIROMETER AT REGULAR INTERVALS AND TO GET UP IN CHAIR SOME TIME TODAY. RBVO.
--- NOTE | 2017-05-05 08:01 | PRM.PN ---
Progress Note Subjective Date: May 05, 2017 Time: 07:57 Physician Notes: Patient is s/p incision and drainage of right buttock abscess. Feels better. Less pain. Objective Review IO, Exams,& Results Problems Acute/Active Problems: (1) Diabetes type 2, uncontrolled (2) Perirectal abscess (3) Sepsis Vital Signs Date Time Temp Pulse Resp B/P (MAP) Pulse Ox O2 Delivery O2 Flow Rate FiO2 05/05/17 07:30 Nasal Cannula 3.00 05/05/17 07:15 99.0 109 14 93 05/05/17 07:00 150/63 (92) Intake and Output 05/05/17 07:00 Intake Total 4357 ml Output Total 1600 ml Balance 2757 ml Intake Oral 1460 ml IV Total 2897 ml Output Urine Total 1600 ml Laboratory Tests Test 05/03/17 10:20 05/03/17 10:30 05/03/17 10:42 05/03/17 10:43 White Blood Count 28.5 10^3/uL Red Blood Count 6.67 10^6/uL Hemoglobin 16.8 g/dL Hematocrit 52.5 % Mean Corpuscular Volume 78.7 fL Mean Corpuscular Hemoglobin 25.2 pg Mean Corpuscular Hemoglobin Concent 32.0 g/dL Red Cell Distribution Width 18.7 % Platelet Count 241 10^3/uL Mean Platelet Volume 11.4 fL Neutrophils (%) (Auto) 87.4 % Lymphocytes (%) (Auto) 3.7 % Monocytes (%) (Auto) 8.1 % Neutrophils # (Auto) 24.9 10^3/uL Lymphocytes # (Auto) 1.1 10^3/uL Monocytes # (Auto) 2.3 10^3/uL Absolute Immature Granulocyte (auto 0.20 10^3 u/L Eosinophils % 0.0 % Basophils % 0.1 % Basophils # 0.0 10^3/uL Eosinophil Count 0.0 10^3/uL Sodium Level 128 mmol/L Potassium Level 4.4 mmol/L Chloride Level 92.0 mmol/L Carbon Dioxide Level 24.1 mmol/L Anion Gap 16.3 Blood Urea Nitrogen 14 mg/dL Creatinine 1.32 mg/dL Estimated GFR () 69.8 BUN/Creatinine Ratio 10.0 Glucose Level 353 mg/dL Calcium Level 9.2 mg/dL Total Bilirubin 2.0 mg/dL Aspartate Amino Transf (AST/SGOT) 14 U/L Alanine Aminotransferase (ALT/SGPT) 23 U/L Alkaline Phosphatase 84 U/L Total Protein 8.1 g/dL Albumin 3.0 g/dL Globulin 5.1 Percent Immature Gran (Cell Imm) 0.70 % Prothrombin Time 12.3 SEC Prothrombin Time INR (Non-Therap) 1.2 Activated Partial Thromboplast Time 27.3 SEC Blood Gas Sample Site RT RADIAL ARTERY Blood Gas pH 7.452 Blood Gas PCO2 38.0 mmHg Blood Gas PO2 72.5 mmHg Blood Gas HCO3 25.9 mmol/L Blood Gas Base Excess 2.2 mmol/L Vernon Test POSITIVE Arterial Blood Oxygen Saturation 96.0 % Deoxyhemoglobin 3.7 % Carboxyhemoglobin 6.0 % Methemoglobin 0.5 % Total Hemoglobin 18.9 % Total Oxygen Concentration 23.8 % Lactic Acid (Blood Gas) 2.9 MMOL/L Blood Gas Temperature 37 Oxygen Delivery Method (LAB) NASAL CANNULA FiO2 28 % Bicarbonate 27.1 mmol/L Differential Total Cells Counted 100 #CELLS Segmented Neutrophils 88 % Lymphocytes 7 % Monocytes 5 % Differential Comment NORMAL Platelet Estimate ADEQUATE Platelet Morphology NORMAL Blood Morphology Comment NORMAL MORPHOLOGY Test 05/03/17 18:18 05/03/17 19:15 05/03/17 20:20 05/03/17 20:34 Blood Gas Sample Site RT RADIAL ARTERY RT RADIAL ARTERY Blood Gas pH 7.156 7.284 Blood Gas PCO2 24.6 mmHg 50.3 mmHg Blood Gas PO2 41.3 mmHg 89.5 mmHg Blood Gas HCO3 8.5 mmol/L 23.3 mmol/L Blood Gas Base Excess -18.5 mmol/L -3.9 mmol/L Vernon Test POSITIVE POSITIVE Arterial Blood Oxygen Saturation 66.5 % 96.7 % Deoxyhemoglobin 31.3 % 3.1 % Carboxyhemoglobin 4.6 % 4.5 % Methemoglobin 2.1 % 0.5 % Total Hemoglobin 4.3 % 16.5 % Total Oxygen Concentration 3.8 % 21.4 % Lactic Acid (Blood Gas) 0.3 MMOL/L 1.5 MMOL/L Blood Gas Temperature 37 Oxygen Delivery Method (LAB) NASAL CANNULA NASAL CANNULA FiO2 36 % 36 % Bicarbonate 9.2 mmol/L 24.9 mmol/L Hemoglobin 15.0 g/dL Hematocrit 48.8 % Urine Collection Type UNKNOWN Urine Color YELLOW Urine Appearance CLEAR Urine Bilirubin NEGATIVE MG/DL Urine Ketones NEGATIVE Urine Specific [place] 1.015 Urine pH 5 Urine Protein 15 mg/dL Urine Urobilinogen NORMAL Urine Nitrate NEGATIVE Urine Leukocyte Esterase NEGATIVE Urine Blood NEGATIVE Urine RBC NONE SEEN RBC/HPF Urine WBC 0-2 WBC/HPF Urine Squamous Epithelial Cells RARE #/HPF Urine Amorphous Sediment MODERATE Urine Bacteria NONE SEEN Urine Fine Granular Casts 0-1 Urine Glucose NORMAL Test 05/04/17 05:10 05/04/17 05:41 05/05/17 04:59 White Blood Count 30.8 10^3/uL 25.2 10^3/uL Red Blood Count 6.07 10^6/uL 5.95 10^6/uL Hemoglobin 15.2 g/dL 14.9 g/dL Hematocrit 51.2 % 51.7 % Mean Corpuscular Volume 84.3 fL 86.9 fL Mean Corpuscular Hemoglobin 25.0 pg 25.0 pg Mean Corpuscular Hemoglobin Concent 29.7 g/dL 28.8 g/dL Red Cell Distribution Width 19.2 % 19.2 % Platelet Count 209 10^3/uL 213 10^3/uL Mean Platelet Volume 10.8 fL 11.0 fL Neutrophils (%) (Auto) 87.0 % 87.5 % Lymphocytes (%) (Auto) 4.5 % 3.8 % Monocytes (%) (Auto) 7.7 % 7.7 % Neutrophils # (Auto) 26.8 10^3/uL 22.1 10^3/uL Lymphocytes # (Auto) 1.4 10^3/uL 1.0 10^3/uL Monocytes # (Auto) 2.4 10^3/uL 1.9 10^3/uL Absolute Immature Granulocyte (auto 0.22 10^3 u/L 0.18 10^3 u/L Eosinophils % 0.0 % 0.2 % Basophils % 0.1 % 0.1 % Basophils # 0.0 10^3/uL 0.0 10^3/uL Eosinophil Count 0.0 10^3/uL 0.1 10^3/uL Sodium Level 134 mmol/L 133 mmol/L Potassium Level 4.8 mmol/L 6.0 mmol/L Chloride Level 99.0 mmol/L 99.0 mmol/L Carbon Dioxide Level 28.5 mmol/L 29.2 mmol/L Glucose Level 193 mg/dL 267 mg/dL Blood Urea Nitrogen 17 mg/dL 28 mg/dL Creatinine 1.43 mg/dL 1.77 mg/dL Calcium Level 7.9 mg/dL 8.0 mg/dL Anion Gap 11.3 10.8 Estimated GFR () 63.6 49.7 BUN/Creatinine Ratio 11.0 15.0 Hemoglobin A1c 9.4 % Total Creatine Kinase 77 U/L Creatine Kinase MB 0.8 ng/mL Troponin I < 0.02 ng/mL Pro-B-Type Natriuretic Peptide 874 pg/mL Triglycerides Level 97 mg/dL Cholesterol Level 73 mg/dL LDL Cholesterol, Calculated 38.6 VLDL Cholesterol 19.4 HDL Cholesterol 15 mg/dL Cholesterol Ratio (LDL/HDL) 2.5 Cholesterol/HDL Ratio [id number] Thyroid Stimulating Hormone (TSH) 3.571 mIU/mL Percent Immature Gran (Cell Imm) 0.70 % 0.70 % Differential Total Cells Counted 100 #CELLS Segmented Neutrophils 86 % Band Neutrophils 3 % Lymphocytes 5 % Monocytes 6 % Platelet Estimate ADEQUATE Platelet Morphology NORMAL Blood Morphology Comment NORMAL MORPHOLOGY Current Medications Medications (Trade) Dose Ordered Sig/Rico PRN Reason Start Time Stop Time Status Last Admin Acetaminophen (Tylenol) 650 mg Q6H PRN PAIN MILD 05/04/17 08:00 06/03/17 07:59 05/04/17 08:26 Acetaminophen/ Hydrocodone Bitart (Tillatoba 10mg) 1 each Q6H PRN PAIN 05/03/17 14:30 06/02/17 14:29 05/04/17 16:36 Enoxaparin Sodium (Lovenox) 40 mg DAILY24 05/05/17 09:00 06/04/17 08:59 Hydrochlorothiazide (Hydrochlorothiazide) 25 mg DAILY 05/04/17 09:00 06/03/17 08:59 05/04/17 08:27 Insulin Human Regular (Humulin R) Y ACHS 05/04/17 08:17 06/02/17 17:29 05/04/17 20:36 Losartan Potassium (Cozaar) 100 mg DAILY 05/04/17 09:00 06/03/17 08:59 05/04/17 08:27 Metronidazole 100 ml @ 100 mls/hr Q8HR 05/04/17 18:00 06/03/17 17:59 05/05/17 04:55 Morphine Sulfate (Morphine Sulfate) 4 mg Q4H PRN PAIN 05/03/17 14:30 06/02/17 14:29 Ondansetron HCl (Zofran) 4 mg Q6H PRN NAUSEA / VOMITING 05/04/17 17:30 06/03/17 17:29 05/04/17 17:34 Pantoprazole Sodium (Protonix Iv) 40 mg DAILY 05/03/17 14:30 06/02/17 14:29 05/04/17 08:28 Piperacillin/ Tazobactam/ Dextrose 50 ml @ 50 mls/hr Q6 05/03/17 16:00 06/02/17 15:59 05/05/17 06:11 Sodium Chloride 1,000 ml @ 100 mls/hr Q10H 05/03/17 15:00 06/02/17 14:59 05/05/17 04:54 Sodium Chloride 6,736 ml @ 3,368 mls/hr OT 05/03/17 17:30 06/02/17 17:29 Vancomycin HCl 1250 mg/Sodium Chloride 250 ml @ 250 mls/hr Q12H 05/04/17 22:18 06/03/17 19:59 Orders - CHRISTAL WHITE MD Enoxaparin Sodium (Lovenox) (05/05/17 09:00) Metronidazole/Sodium Chloride (Flagyl 50 (05/04/17 18:00) Patient Npo After Midnight (05/04/17 17:58) Npo Now (05/04/17 17:58) Vancomycin Hcl (Vancomycin) (05/04/17 22:18) Heart: Regular rate Abdomen: Soft, No tenderness, Other (Right buittock wound dressing changed. Wound is looking better. Redness is less. Minimal drainage. Still has odor.) Lungs: Clear to auscultation Skin: Other (The right buttock dressing changed. Wound looks clean. Dressing was saturated. Cavity packed with Iodoform gauze. ) Assessment & Plan: Assessment Stable Plan 1) OOB to chair 2) ADA diet 3) Consider insulin drip if blood glucose is not coming under control. CHRISTAL WHITE MD May 05, 2017 08:01
[2017-05-05] MEDS: HUMULIN R SQ SCH ×4 (08:13→21:21)
--- NOTE | 2017-05-05 08:30 | NUR ---
PATIENT ASKED TO GET UP TO CHAIR PER DR. WHITE'S REQUEST. PATIENT REFUSED. PATIENT ASKED TO LET STAFF KNOW WHEN HE WAS READY.
[2017-05-05] MEDS: COZAAR PO SCH (09:00)
--- NOTE | 2017-05-05 09:07 | NUR ---
DEN RANDALL NOTIFIED OF PATIENT'S POTASSIUM LEVEL OF 6.0. ASKED IF LOSARTAN POTASSIUM SHOULD BE HELD. ORDERS GIVEN TO HOLD UNTIL PATIENT IS SEEN BY HER AND DR. KILLIAN. RBTO.
[2017-05-05] MEDS: LOVENOX SQ SCH (09:13)
[2017-05-05] MEDS: HYDROCHLOROTHIAZIDE PO SCH (09:13)
[2017-05-05] MEDS: PROTONIX IV IV SCH (09:13)
[2017-05-05] MEDS: NORCO 10MG PO PRN (09:23)
--- NOTE | 2017-05-05 09:54 | NUR ---
DR. KILLIAN AND CARLOS RANDALL AT BEDSIDE. NEW ORDERS GIVEN: STOP COZAAR, STOP HYDROCHLORITHIAZIDE, STOP VANCOMYCIN. START 40MG LASIX DAILY, 6.25MG OF COREG BID, CHANGE NS TO HNS @ 150ML/HR. RBVO.
[2017-05-05] MEDS: VANCOMYCIN IV SCH (10:01)
[2017-05-05] MEDS: NS IV SCH (10:01)
[2017-05-05] MEDS ORDERED: LASIX ONE (10:04)
[2017-05-05] MEDS ORDERED: HNS 1000ML 1,000 ML ONE (10:04)
[2017-05-05] MEDS ORDERED: COREG ONE (10:04)
--- NOTE | 2017-05-05 10:20 | NUR ---
MEDICATION PATIENT GIVEN 6.25MG OF COREG PO AND 40MG LASIX IV PER DR. KILLIAN'S ORDER.
--- NOTE | 2017-05-05 10:25 | PRM.PN ---
Subjective Subjective Date: May 05, 2017 Time: 10:18 Subjective Patient is somnolent, difficult to rouse, snoring. states that he has been very sleepy recently. Patient History: Patient reports no known family medical history. VTE VTE Risk Total Score: 5 VTE Risk Score VTE Risk: Score 0-1 = Low Risk (Aggressive mobilization; early ambulation; no VTE prophylaxis required) Score 2: Moderate Risk (Intermittent/Pneumatic Compression Device OR Lovenox/Heparin/Coumadin) Score 3-4: High Risk (Intermittent/Pneumatic Compression Device AND Lovenox/Heparin/Coumadin) Score > or =5: Highest Risk (Intermittent/Pneumatic Compression Device AND Lovenox/Heparin/Coumadin) Review of Systems Constitutional: Fever, Chills Gastrointestinal: Other (perirectal pain) Allergies: Coded Allergies: No Known Allergies (Unverified , 05/03/17) Scheduled Glyburide (Glyburide), 1 TAB PO BID, (Reported) Glyburide (Glyburide), 1 TAB PO DAILY24, (Reported) Losartan/Hydrochlorothiazide (Losartan-Hctz 100-25 Mg Tab), 1 TAB PO DAILY, ( Reported) Metformin Hcl (Metformin Hcl), 1 TAB PO BID, (Reported) Objective Vitals and I/O Vital Sign - Last 24 Hours 05/04/17 05/04/17 05/04/17 05/04/17 10:43 10:45 11:00 11:15 Temp 98.3 Pulse 95 97 95 99 Resp 24 B/P (MAP) 120/61 (80) 107/73 (84) 125/79 (94) 129/80 (96) Pulse Ox 95 92 92 94 05/04/17 05/04/17 05/04/17 05/04/17 11:30 11:45 12:00 12:15 Pulse 92 102 104 101 Resp 24 B/P (MAP) 128/65 (86) 132/62 (85) 145/53 (83) 148/76 (100) Pulse Ox 96 90 95 94 05/04/17 05/04/17 05/04/17 05/04/17 12:20 12:30 12:45 13:00 Pulse 105 98 Resp 16 B/P (MAP) 138/76 (96) 136/66 (89) 118/76 (90) Pulse Ox 84 82 76 O2 Delivery Nasal Cannula O2 Flow Rate 4.00 05/04/17 05/04/17 05/04/17 05/04/17 13:15 13:30 13:45 14:00 Pulse 98 104 97 100 Resp 16 B/P (MAP) 112/60 (77) 120/49 (72) Pulse Ox 92 85 93 90 05/04/17 05/04/17 05/04/17 05/04/17 14:15 14:30 14:45 15:00 Pulse 108 102 103 109 B/P (MAP) 113/63 (80) Pulse Ox 78 87 88 90 05/04/17 05/04/17 05/04/17 05/04/17 15:15 15:30 15:45 16:00 Pulse 103 102 98 99 Resp 22 B/P (MAP) 133/64 (87) Pulse Ox 93 95 95 95 05/04/17 05/04/17 05/04/17 05/04/17 16:15 16:30 16:34 16:45 Temp 99.0 Pulse 103 101 106 Resp 24 Pulse Ox 92 95 93 O2 Delivery Nasal Cannula O2 Flow Rate 3.00 05/04/17 05/04/17 05/04/17 05/04/17 17:00 17:15 17:30 17:45 Pulse 105 108 107 104 Resp 24 B/P (MAP) 127/68 (87) Pulse Ox 92 80 76 05/04/17 05/04/17 05/04/17 05/04/17 18:00 18:15 18:30 18:45 Pulse 110 112 114 Resp 25 B/P (MAP) 105/61 (76) Pulse Ox 80 82 89 86 05/04/17 05/04/17 05/04/17 05/04/17 19:00 19:15 19:21 19:45 Temp 98.4 Pulse 109 113 109 Resp 20 20 B/P (MAP) 100/51 (67) Pulse Ox 86 91 92 O2 Delivery Nasal Cannula O2 Flow Rate 3.00 05/04/17 05/04/17 05/04/17 05/04/17 20:00 20:15 20:21 20:30 Pulse 110 111 106 101 Resp 18 24 11 B/P (MAP) 109/67 (81) Pulse Ox 92 93 94 93 O2 Delivery Nasal Cannula O2 Flow Rate 3.00 05/04/17 05/04/17 05/04/17 05/04/17 20:45 21:00 21:01 21:15 Pulse 108 113 112 115 Resp 12 20 B/P (MAP) 102/64 (77) Pulse Ox 95 83 82 82 05/04/17 05/04/17 05/04/17 05/04/17 21:30 21:45 22:00 22:02 Pulse 107 106 Resp 24 B/P (MAP) Pulse Ox 95 97 95 95 05/04/17 05/04/17 05/04/17 05/04/17 22:13 22:15 22:30 22:45 Pulse 105 105 107 Resp 14 13 17 B/P (MAP) 101/63 (76) Pulse Ox 95 95 95 96 05/04/17 05/04/17 05/04/17 05/04/17 23:00 23:15 23:30 23:45 Temp 98.0 Pulse 101 101 102 Resp 21 18 18 B/P (MAP) 116/49 (71) 96/49 (65) Pulse Ox 92 94 96 95 05/04/17 05/05/17 05/05/17 05/05/17 23:51 00:00 00:15 00:30 Pulse 97 99 97 Resp 20 B/P (MAP) 96/68 (77) Pulse Ox 74 71 O2 Delivery Nasal Cannula O2 Flow Rate 3.00 05/05/17 05/05/17 05/05/17 05/05/17 00:45 01:00 01:15 01:30 Pulse 103 98 103 104 Resp 16 B/P (MAP) 118/53 (74) Pulse Ox 99 98 98 99 05/05/17 05/05/17 05/05/17 05/05/17 01:45 02:00 02:15 02:30 Pulse 102 103 104 103 Resp 18 16 16 B/P (MAP) 119/52 (74) Pulse Ox 99 99 98 94 05/05/17 05/05/17 05/05/17 05/05/17 02:45 03:00 03:15 03:30 Pulse 101 104 102 107 Resp 20 20 18 20 B/P (MAP) 121/61 (81) Pulse Ox 93 94 90 94 05/05/17 05/05/17 05/05/17 05/05/17 03:45 04:00 04:15 04:30 Pulse 107 106 108 112 Resp 22 23 24 B/P (MAP) 130/57 (81) Pulse Ox 99 97 97 98 05/05/17 05/05/17 05/05/17 05/05/17 04:33 04:45 05:00 05:05 Temp 98.7 Pulse 110 111 107 Resp 17 22 19 B/P (MAP) 144/94 (111) 134/64 (87) Pulse Ox 98 98 93 O2 Delivery Nasal Cannula O2 Flow Rate 3.00 05/05/17 05/05/17 05/05/17 05/05/17 06:00 06:15 06:30 06:45 Pulse 112 105 107 108 Resp 19 14 B/P (MAP) 133/62 (85) Pulse Ox 93 85 96 93 05/05/17 05/05/17 05/05/17 05/05/17 07:00 07:15 07:30 07:30 Temp 99.0 Pulse 107 109 108 Resp 15 14 31 B/P (MAP) 150/63 (92) Pulse Ox 90 93 94 O2 Delivery Nasal Cannula O2 Flow Rate 3.00 05/05/17 05/05/17 05/05/17 05/05/17 07:45 08:00 08:15 08:24 Pulse 111 109 109 Resp 28 14 B/P (MAP) 152/100 (117) Pulse Ox 93 92 91 93 O2 Delivery Nasal Cannula O2 Flow Rate 3.00 FiO2 32 05/05/17 05/05/17 05/05/17 05/05/17 08:30 08:45 09:00 09:00 Pulse 113 109 Resp 27 22 8 B/P (MAP) 150/73 (98) 157/83 Pulse Ox 90 93 94 05/05/17 05/05/17 05/05/17 09:13 09:15 09:30 Pulse 105 106 Resp 24 B/P (MAP) 150/73 Pulse Ox 88 94 Intake and Output 05/04/17 05/04/17 05/05/17 15:00 23:00 07:00 Intake Total 660 ml 1652 ml 2045 ml Output Total 850 ml 750 ml Balance 660 ml 802 ml 1295 ml General: mild distress, Other (somnolent but wakes. ) Lungs: Clear to auscultation Heart: Other (tachycardic) Extremities: No cyanosis, Other (edema to lower extremities - increased from yesterday) Neuro: Normal speech, Normal tone Psych/Mental Status: Mental status NL, Mood NL Medication Reconciliation Scheduled Glyburide (Glyburide), 1 TAB PO BID, (Reported) Glyburide (Glyburide), 1 TAB PO DAILY24, (Reported) Losartan/Hydrochlorothiazide (Losartan-Hctz 100-25 Mg Tab), 1 TAB PO DAILY, ( Reported) Metformin Hcl (Metformin Hcl), 1 TAB PO BID, (Reported) Assessment/Plan Assessment/Plan Patient History: Patient reports no known family medical history. Plan White count has decreased; but BUN and creatinine have increased; potassium is 6.0; and weight is up 8 pounds since admission. Appears to have a kidney failure at this time, so medication regimen will be adjusted. Discontinue vancomycin, ibuprofen, Losartan. Add Lasix 40 daily; Coreg 6.25 BID, amlodipine 10 daily; and change IV fluids to 0.45 NaCl at 150 ml/hr. Repeat labs as needed EKG Dr. Floyd is overseeing wound packing. Will follow. DAVINA RANDALL APRN, NP May 05, 2017 10:25
--- NOTE | 2017-05-05 10:32 | PCM.EKG ---
[facility] Test Date: 2017-05-05 Test Time: 10:02:04 Pat Name: ELPIDIO LEONE Department: Patient ID: [facility]-[id number] Room: ICU4 A Gender: M Oracle Programmer Analyst: TYRELL : 1965 Requested By: PAVEL LAWSON Order Number: [id number] Reading MD: Pavel Lawson Measurements Intervals [place] Rate: 110 P: 49 NV: 166 QRS: 225 QRSD: 158 T: 18 QT: 370 QTc: 500 Interpretive Statements Sinus tachycardia Right bundle branch block Inferior infarct, age undetermined Abnormal ECG No previous ECG available for comparison Electronically Signed On 05-06-2017 10:06:47 CORKING MACHINE OPERATOR by Pavel Lawson Please click the below link to view image of tracing.
[2017-05-05] MEDS: ZOFRAN IV PRN ×2 (10:56→18:35)
[2017-05-05] MEDS: HNS 1000ML 1,000 ML IV SCH ×3 (10:57→21:24)
--- NOTE | 2017-05-05 11:15 | NUR ---
PATIENT SITTING UP ON SIDE OF BED. ASKED IF HE WOULD LIKE TO SIT IN CHAIR. PATIENT REFUSED.
[2017-05-05] MEDS ORDERED: ZOSYN 3.375 GRAM VIAL IV ONE (11:27)
[2017-05-05] MEDS ORDERED: NS 100ML 100 ML IV ONE (11:27)
--- NOTE | 2017-05-05 16:30 | NUR ---
PATIENT UP TO CHAIR AT BEDSIDE. DINNER SERVED.
--- NOTE | 2017-05-05 18:23 | NUR ---
DR. WHITE AT BEDSIDE. NEW ORDERS GIVEN TO CHANGE MAINTENANCE FLUID HNS TO 125ML/HR. RBVO. Addendum: 05/06/17 at 0213 by John Valencia RN- RN DRESSING CHANGED. 2000 H PACKING AND DRESSING CHANGED ON RIGHT BUTTOCK INCISION SITE POST I&D. WOUND APPEARS DRY. MILD ERYTHEMA NOTED ON THE SITE AND SURROUNDING SKIN AREA BUT NO BREAKDOWN. NO DRAINAGE NO FOUL ODOR NOTED. PATIENT WAS GIVEN A PARTIAL BATH. PATIENT TOLERATED WELL. WILL CONTINUE TO MONITOR PATIENT.
[2017-05-05 18:30] LABS: BASOPHIL % 0.2 % (0.0-0.2); HEMOGLOBIN 14.8 g/dL (13.9-16.3); LYMPHOCYTES # 0.9 10^3/uL (1.0-4.8); LYMPHOCYTES % 4.6 % (24.0-44.0); MEAN CELL HGB CONCENTRATION 28.6 g/dL (33-37); MEAN CORP VOLUME 87.4 fL (78-100); MEAN PLATELET VOLUME 10.6 fL (7.8-11.0); MONOCYTES # 1.3 10^3/uL (0.3-0.8); MONOCYTES % 6.6 % (5.0-12.0); NEUTROPHIL # 17.4 10^3/uL (1.8-7.7); NEUTROPHILS % 87.9 % (41.0-85.0); WHITE BLOOD CELL 19.8 10^3/uL (4.5-11.0)
[2017-05-05 18:41] LABS: CALCIUM 8.1 mg/dL (8.4-10.5); CARBON DIOXIDE 31.2 mmol/L (20.0-32)
[2017-05-05] MEDS: COREG PO SCH (21:22)
[2017-05-06] VITALS (14 sets, daily range): BP systolic 103–131; BP diastolic 40–86
[2017-05-06] MEDS: ZOSYN 3.375 GM/50 ML 50 ML IV SCH ×4 (00:43→18:31)
--- NOTE | 2017-05-06 02:13 | NUR ---
CPAP MACHINE 2029 H EXPLAINED TO PATIENT THE NEED AND IMPORTANCE OF WEARING CPAP AT NIGHT. PATIENT VERBALIZES THAT HE IS AWARE THAT NEED TO WEAR CPAP AT NIGHT BUT HE STILL REFUSES IT. CHASIDY RAZO AT BEDSIDE. Addendum: 05/06/17 at 0217 by John Valencia RN- RN WOUND ASSESSMENT. 1999 H PATIENT ASSISTED BACK TO THE BED.PATIENT INCISION SITE ASSESSED APPEARS DRY NO DRAINAGE OR FOUL ODOR NOTED. PACKING AND DRESSING CHANGED ORDERED. SURROUNDING SKIN AREA IS INTACT. PATIENT TOLERATED WELL. PARTIAL BATH GIVEN AT THIS TIME.
--- NOTE | 2017-05-06 02:17 | NUR ---
PATIENT REFUSED SIMPLE MASK WHILE ASLEEP INSTEAD OF CPAP. PATIENT REEDUCATED ABOUT HIS LOW OXYGEN SATURATION WHEN ASLEEP. PATIENT STILL REFUSED TO USE MASK.
[2017-05-06] MEDS: ZOFRAN IV PRN (04:34)
[2017-05-06] MEDS: FLAGYL 500MG/ 100 ML NS 100 ML IV SCH ×3 (05:04→21:04)
[2017-05-06 05:52] LABS: BASOPHIL % 0.1 % (0.0-0.2); HEMOGLOBIN 13.7 g/dL (13.9-16.3); LYMPHOCYTES # 1.2 10^3/uL (1.0-4.8); LYMPHOCYTES % 6.7 % (24.0-44.0); MEAN CELL HGB 24.7 pg (26-34); MEAN CELL HGB CONCENTRATION 28.5 g/dL (33-37); MEAN CORP VOLUME 86.6 fL (78-100); MEAN PLATELET VOLUME 11.6 fL (7.8-11.0); MONOCYTES # 1.3 10^3/uL (0.3-0.8); MONOCYTES % 7.3 % (5.0-12.0); NEUTROPHIL # 15.6 10^3/uL (1.8-7.7); NEUTROPHILS % 85.4 % (41.0-85.0); RED CELL DISTRIBUTION WIDTH 18.5 % (11.5-14.5); WHITE BLOOD CELL 18.3 10^3/uL (4.5-11.0)
[2017-05-06 06:09] LABS: CALCIUM 8.2 mg/dL (8.4-10.5)
--- NOTE | 2017-05-06 06:35 | NUR ---
REPORT RECEIVED FROM PREVIOUS SHIFT. ASSUMED CARE OF PATIENT.
[2017-05-06 07:08] LABS: LYMPHOCYTE 5 % (25-36); MONOCYTE 4 % (3-9); SEGMENTED NEUTROPHILS 91 % (31-76)
[2017-05-06] MEDS ORDERED: ULTRAM PO PRN ×2 (07:30→12:00)
--- NOTE | 2017-05-06 07:32 | PRM.PN ---
Subjective Subjective Date: May 06, 2017 Time: 07:28 Subjective Patient is much more awake today, sitting on bedside. Has been using inspirometer. States has headache. Patient History: Patient reports no known family medical history. VTE VTE Risk Total Score: 5 VTE Risk Score VTE Risk: Score 0-1 = Low Risk (Aggressive mobilization; early ambulation; no VTE prophylaxis required) Score 2: Moderate Risk (Intermittent/Pneumatic Compression Device OR Lovenox/Heparin/Coumadin) Score 3-4: High Risk (Intermittent/Pneumatic Compression Device AND Lovenox/Heparin/Coumadin) Score > or =5: Highest Risk (Intermittent/Pneumatic Compression Device AND Lovenox/Heparin/Coumadin) Review of Systems Constitutional: Fever, Chills Gastrointestinal: Other (perirectal pain) Allergies: Coded Allergies: No Known Allergies (Unverified , 05/03/17) Scheduled Glyburide (Glyburide), 1 TAB PO BID, (Reported) Glyburide (Glyburide), 1 TAB PO DAILY24, (Reported) Losartan/Hydrochlorothiazide (Losartan-Hctz 100-25 Mg Tab), 1 TAB PO DAILY, ( Reported) Metformin Hcl (Metformin Hcl), 1 TAB PO BID, (Reported) Objective Vitals and I/O Vital Sign - Last 24 Hours 05/05/17 05/05/17 05/05/17 05/05/17 07:30 07:30 07:45 08:00 Pulse 108 111 109 Resp 31 28 B/P (MAP) 152/100 (117) Pulse Ox 94 93 92 O2 Delivery Nasal Cannula O2 Flow Rate 3.00 05/05/17 05/05/17 05/05/17 05/05/17 08:15 08:24 08:30 08:45 Pulse 109 113 Resp 14 27 22 Pulse Ox 91 93 90 93 O2 Delivery Nasal Cannula O2 Flow Rate 3.00 FiO2 32 05/05/17 05/05/17 05/05/17 05/05/17 09:00 09:00 09:13 09:15 Pulse 109 105 Resp 8 B/P (MAP) 150/73 (98) 157/83 150/73 Pulse Ox 94 88 05/05/17 05/05/17 05/05/17 05/05/17 09:30 09:45 10:00 10:15 Pulse 106 112 108 107 Resp 24 21 22 20 B/P (MAP) 157/83 (107) Pulse Ox 94 94 91 93 05/05/17 05/05/17 05/05/17 05/05/17 10:30 10:45 11:00 11:15 Pulse 105 96 108 Resp 17 20 70 B/P (MAP) 142/78 (99) Pulse Ox 95 93 05/05/17 05/05/17 05/05/17 05/05/17 11:30 11:45 12:00 12:30 Temp 98.0 Pulse 99 99 100 101 Resp 53 10 20 B/P (MAP) 148/84 (105) 05/05/17 05/05/17 05/05/17 05/05/17 12:33 13:00 13:15 13:30 Pulse 97 161 99 Resp 43 B/P (MAP) 110/69 (83) O2 Delivery Nasal Cannula O2 Flow Rate 3.00 05/05/17 05/05/17 05/05/17 05/05/17 13:45 14:00 14:15 14:30 Pulse 100 100 100 100 Resp 31 22 19 B/P (MAP) 142/79 (100) Pulse Ox 86 88 05/05/17 05/05/17 05/05/17 05/05/17 14:45 15:00 15:01 15:05 Pulse 98 100 100 99 Resp 22 14 11 24 B/P (MAP) 90/77 (81) 116/65 (82) Pulse Ox 89 88 87 88 05/05/17 05/05/17 05/05/17 05/05/17 15:15 15:30 15:45 16:00 Pulse 99 98 97 98 Resp 10 15 18 28 B/P (MAP) 121/62 (81) Pulse Ox 95 95 93 95 05/05/17 05/05/17 05/05/17 05/05/17 16:15 16:30 16:45 17:00 Temp 98.2 Pulse 92 100 Resp 23 27 Pulse Ox 96 93 96 97 05/05/17 05/05/17 05/05/17 05/05/17 17:02 17:15 17:22 17:30 B/P (MAP) Pulse Ox 97 98 93 O2 Delivery Nasal Cannula O2 Flow Rate 3.00 11/24/17 11/24/17 11/24/17 11/24/17 17:45 18:00 18:02 18:15 Pulse 88 B/P (MAP) Pulse Ox 94 96 94 93 05/05/17 05/05/17 05/05/17 05/05/17 19:00 19:00 20:02 20:11 Temp 98.7 Pulse 94 Resp 22 B/P (MAP) 132/84 (100) Pulse Ox 97 91 91 O2 Delivery Nasal Cannula Nasal Cannula O2 Flow Rate 3.00 5.00 05/05/17 05/05/17 05/05/17 05/05/17 20:40 21:01 21:22 22:09 Pulse 93 91 90 87 Resp 9 34 B/P (MAP) 131/70 (90) 118/59 (78) 118/59 141/69 (93) Pulse Ox 86 88 83 05/05/17 05/05/17 05/06/17 05/06/17 23:00 23:01 00:00 01:01 Temp 98.6 Pulse 99 87 91 Resp 68 26 87 B/P (MAP) 98/57 (71) 131/59 (83) 112/40 (64) Pulse Ox 90 89 O2 Delivery Nasal Cannula O2 Flow Rate 3.00 05/06/17 05/06/17 05/06/17 05/06/17 02:00 03:00 04:09 04:15 Pulse 84 85 80 Resp 9 B/P (MAP) 103/57 (72) 123/72 (89) 114/56 (75) Pulse Ox 83 83 86 O2 Delivery Nasal Cannula O2 Flow Rate 3.00 05/06/17 05/06/17 05/06/17 05/06/17 05:00 06:00 06:15 06:30 Temp 98.8 Pulse 80 84 Resp 21 B/P (MAP) 123/58 (79) 130/52 (78) Pulse Ox 87 90 93 96 Intake and Output 05/05/17 05/05/17 05/06/17 15:00 23:00 07:00 Intake Total 2702 ml 1473 ml Output Total 2450 ml 1350 ml Balance 252 ml 123 ml General: Alert, Oriented X3, Cooperative, No acute distress Neck: Supple Lungs: Clear to auscultation Extremities: No cyanosis Neuro: Normal speech, Normal tone Psych/Mental Status: Mental status NL, Mood NL Medication Reconciliation Scheduled Glyburide (Glyburide), 1 TAB PO BID, (Reported) Glyburide (Glyburide), 1 TAB PO DAILY24, (Reported) Losartan/Hydrochlorothiazide (Losartan-Hctz 100-25 Mg Tab), 1 TAB PO DAILY, ( Reported) Metformin Hcl (Metformin Hcl), 1 TAB PO BID, (Reported) Assessment/Plan Assessment/Plan Problems: (1) Sepsis Status: Acute ICD Code: A41.9 - Sepsis, unspecified organism SNOMED: 45237279 (2) Perirectal abscess Status: Acute ICD Code: K61.1 - Rectal abscess SNOMED: 77408058, 686691768 (3) Diabetes type 2, uncontrolled Status: Acute ICD Code: E11.65 - Type 2 diabetes mellitus with hyperglycemia SNOMED: 58467379, 481440938 Patient History: Patient reports no known family medical history. Plan Continue with wound care per Surgical Service orders. Consider move to Med/Surg Repeat EKG and ABG this morning for lactic acid level Problem Qualifiers (1) Sepsis: Sepsis type: sepsis due to unspecified organism Qualified Codes: A41.9 - Sepsis, unspecified organism (2) Diabetes type 2, uncontrolled: Diabetes mellitus complication status: with hyperglycemia Diabetes mellitus intermediate teacher insulin use: without intermediate teacher use Qualified Codes: E11.65 - Type 2 diabetes mellitus with hyperglycemia DAVINA RANDALL APRN, NP May 06, 2017 07:32
[2017-05-06 07:46] LABS: ABG PCO2 62.2 mmHg (35.0-45.0); ABG PH 7.281 (7.350-7.450); BE(B) 0.2 mmol/L (-2.0-2.0); HCO3act 28.6 mmol/L (22.0-26.0); pO2 44.7 mmHg (75.0-100.0)
[2017-05-06] MEDS: HUMULIN R SQ SCH ×4 (07:58→21:00)
--- NOTE | 2017-05-06 08:20 | NUR ---
DR. WHITE AT BEDSIDE. DRESSING CHANGE PERFORMED BY DR. WHITE. PAD AND LINENS CHANGED. NEW ORDERS GIVEN: REDUCE HNS FROM 125ML/HR TO 100ML/HR. RBVO.
--- NOTE | 2017-05-06 08:30 | PRM.PN ---
Progress Note Subjective Date: May 06, 2017 Time: 08:27 Physician Notes: Feels better. Less pain in the surgical wound Objective Review IO, Exams,& Results Problems Acute/Active Problems: (1) Diabetes type 2, uncontrolled (2) Perirectal abscess (3) Sepsis Vital Signs Date Time Temp Pulse Resp B/P (MAP) Pulse Ox O2 Delivery O2 Flow Rate FiO2 05/06/17 07:54 80 21 93 Nasal Cannula 3.00 32 05/06/17 06:00 98.8 130/52 (78) Intake and Output 05/06/17 07:00 Intake Total 4175 ml Output Total 3800 ml Balance 375 ml Intake Oral 2273 ml IV Total 1902 ml Output Urine Total 3800 ml Stool Total 0 ml Laboratory Tests Test 05/05/17 04:59 05/05/17 18:25 05/06/17 05:02 05/06/17 06:14 White Blood Count 25.2 10^3/uL 19.8 10^3/uL 18.3 10^3/uL Red Blood Count 5.95 10^6/uL 5.93 10^6/uL 5.54 10^6/uL Hemoglobin 14.9 g/dL 14.8 g/dL 13.7 g/dL Hematocrit 51.7 % 51.8 % 48.0 % Mean Corpuscular Volume 86.9 fL 87.4 fL 86.6 fL Mean Corpuscular Hemoglobin 25.0 pg 25.0 pg 24.7 pg Mean Corpuscular Hemoglobin Concent 28.8 g/dL 28.6 g/dL 28.5 g/dL Red Cell Distribution Width 19.2 % 19.0 % 18.5 % Platelet Count 213 10^3/uL 217 10^3/uL 211 10^3/uL Mean Platelet Volume 11.0 fL 10.6 fL 11.6 fL Neutrophils (%) (Auto) 87.5 % 87.9 % 85.4 % Lymphocytes (%) (Auto) 3.8 % 4.6 % 6.7 % Monocytes (%) (Auto) 7.7 % 6.6 % 7.3 % Neutrophils # (Auto) 22.1 10^3/uL 17.4 10^3/uL 15.6 10^3/uL Lymphocytes # (Auto) 1.0 10^3/uL 0.9 10^3/uL 1.2 10^3/uL Monocytes # (Auto) 1.9 10^3/uL 1.3 10^3/uL 1.3 10^3/uL Absolute Immature Granulocyte (auto 0.18 10^3 u/L 0.13 10^3 u/L 0.09 10^3 u/L Eosinophils % 0.2 % 0.0 % 0.0 % Basophils % 0.1 % 0.2 % 0.1 % Basophils # 0.0 10^3/uL 0.0 10^3/uL 0.0 10^3/uL Eosinophil Count 0.1 10^3/uL 0.0 10^3/uL 0.0 10^3/uL Sodium Level 133 mmol/L 132 mmol/L 132 mmol/L Potassium Level 6.0 mmol/L 5.0 mmol/L 4.6 mmol/L Chloride Level 99.0 mmol/L 98.0 mmol/L 97.0 mmol/L Carbon Dioxide Level 29.2 mmol/L 31.2 mmol/L 31.0 mmol/L Glucose Level 267 mg/dL 235 mg/dL 200 mg/dL Blood Urea Nitrogen 28 mg/dL 29 mg/dL 27 mg/dL Creatinine 1.77 mg/dL 1.49 mg/dL 1.19 mg/dL Calcium Level 8.0 mg/dL 8.1 mg/dL 8.2 mg/dL Anion Gap 10.8 7.8 8.6 Estimated GFR () 49.7 60.7 78.6 BUN/Creatinine Ratio 15.0 19.0 22.0 Percent Immature Gran (Cell Imm) 0.70 % 0.70 % 0.50 % Differential Total Cells Counted 100 #CELLS Segmented Neutrophils 91 % Lymphocytes 5 % Monocytes 4 % Platelet Estimate ADEQUATE Platelet Morphology NORMAL Test 05/06/17 07:26 Blood Gas Sample Site RT RADIAL ARTERY Blood Gas pH 7.281 Blood Gas PCO2 62.2 mmHg Blood Gas PO2 44.7 mmHg Blood Gas HCO3 28.6 mmol/L Blood Gas Base Excess 0.2 mmol/L [place] Test POSITIVE Arterial Blood Oxygen Saturation 81.4 % Deoxyhemoglobin 18.0 % Carboxyhemoglobin 2.6 % Methemoglobin 0.5 % Total Hemoglobin 15.7 % Total Oxygen Concentration 17.4 % Lactic Acid (Blood Gas) 1.2 MMOL/L Blood Gas Temperature 37 Oxygen Delivery Method (LAB) RA FiO2 21 % Bicarbonate 30.5 mmol/L Current Medications Medications (Trade) Dose Ordered Sig/Rico PRN Reason Start Time Stop Time Status Last Admin Acetaminophen (Tylenol) 650 mg Q6H PRN PAIN MILD 05/04/17 08:00 06/03/17 07:59 05/04/17 08:26 Acetaminophen/ Hydrocodone Bitart ([place] 10mg) 1 each Q6H PRN PAIN 05/03/17 14:30 06/02/17 14:29 05/05/17 09:23 Amlodipine Besylate (Norvasc) 10 mg DAILY 05/06/17 09:00 06/05/17 08:59 Carvedilol (Coreg) 6.25 mg BID 05/05/17 21:00 06/04/17 20:59 05/05/17 21:22 Enoxaparin Sodium (Lovenox) 40 mg DAILY24 05/05/17 09:00 06/04/17 08:59 05/05/17 09:13 Furosemide (Lasix) 40 mg DAILY 05/06/17 09:00 06/05/17 08:59 Hydrochlorothiazide (Hydrochlorothiazide) 25 mg DAILY 05/04/17 09:00 06/03/17 08:59 05/05/17 09:13 Insulin Human Regular (Humulin R) Y ACHS 05/04/17 08:17 06/02/17 17:29 05/06/17 07:58 Metronidazole 100 ml @ 100 mls/hr Q8HR 05/04/17 18:00 06/03/17 17:59 05/06/17 05:04 Morphine Sulfate (Morphine Sulfate) 4 mg Q4H PRN PAIN 05/03/17 14:30 06/02/17 14:29 Ondansetron HCl (Zofran) 4 mg Q6H PRN NAUSEA / VOMITING 05/04/17 17:30 06/03/17 17:29 05/06/17 04:34 Pantoprazole Sodium (Protonix Iv) 40 mg DAILY 05/03/17 14:30 06/02/17 14:29 05/05/17 09:13 Piperacillin/ Tazobactam/ Dextrose 50 ml @ 50 mls/hr Q6 05/03/17 16:00 06/02/17 15:59 05/06/17 05:04 Sodium Chloride 1,000 ml @ 150 mls/hr Q6H40M 05/05/17 10:30 06/04/17 10:29 05/05/17 21:24 Tramadol HCl (Ultram) 50 mg Q6 PRN PAIN 05/06/17 07:30 06/05/17 07:29 05/06/17 07:14 Orders - CHRISTAL WHITE MD Enoxaparin Sodium (Lovenox) (05/05/17 09:00) Metronidazole/Sodium Chloride (Flagyl 50 (05/04/17 18:00) Patient Npo After Midnight (05/04/17 17:58) Npo Now (05/04/17 17:58) Vancomycin,Trough (05/06/17 09:30) Heart: Regular rate, Other (Heart rate is 85/m) Abdomen: Soft, No tenderness, Other (Right buittock wound dressing changed. Wound is looking better. Redness is less. Minimal drainage. No odor.) Lungs: Clear to auscultation Skin: Other (The right buttock dressing changed. Wound looks clean. Dressing was saturated. Cavity packed with Iodoform gauze. ) Assessment & Plan: Assessment Stable Plan 1) Dressing changed. 2) OK to go to the floor from surgery point of view. 3) D/W patient and spouse. CHRISTAL WHITE MD May 06, 2017 08:30
--- NOTE | 2017-05-06 08:31 | PCM.EKG ---
[facility] Test Date: 2017-05-06 Test Time: 07:31:40 Pat Name: ELPIDIO LEONE Department: Room: ICU4 A Gender: M Poem Writer: RODOLFO : 1965 Requested By: DAVINA RANDALL Order Number: [id number] Reading MD: Kevin Lawson Measurements Intervals [place] Rate: 79 P: 33 [place]: 162 QRS: -35 QRSD: 160 T: 16 QT: 404 QTc: 463 Interpretive Statements Sinus rhythm with premature supraventricular complexes Left axis deviation Right bundle branch block bi-fascicular block Abnormal ECG No previous ECG available for comparison Electronically Signed On 05-06-2017 10:07:18 ARBITRATOR by Kevin Lawson Please click the below link to view image of tracing.
[2017-05-06] MEDS ORDERED: LASIX IV SCH (09:00)
[2017-05-06] MEDS ORDERED: NORVASC PO SCH (09:00)
[2017-05-06] MEDS: PROTONIX IV IV SCH (09:33)
[2017-05-06] MEDS: COREG PO SCH ×2 (09:34→21:04)
[2017-05-06] MEDS: LOVENOX SQ SCH (09:34)
--- NOTE | 2017-05-06 09:35 | NUR ---
TRANSFER ORDERS NEW ORDERS RECEIVED FROM DR. KILLIAN: PATIENT TO BE TRANSFERRED TO [facility]. CARLOS RANDALL STATED THAT SHE WOULD PUT THE ORDER IN. RBVO.
--- NOTE | 2017-05-06 10:20 | NUR ---
RAPHAEL CATH BAG LEAKING URINE. BAG EMPTIED AND REPLACED WITH NEW CATHETER BAG, SECURED WITH SILK TAPE.
[2017-05-06] MEDS ORDERED: MORPHINE SULFATE IV PRN (10:30)
[2017-05-06] MEDS: HNS 1000ML 1,000 ML IV SCH ×3 (10:40→21:20)
--- NOTE | 2017-05-06 11:04 | NUR ---
TRANSFERRED TO [place] [id number] IN BARIATRIC BED ON 3L/NC. REPORT GIVEN TO RICHARD BROCK. RELINQUISHED CARE OF PATIENT.
--- NOTE | 2017-05-06 11:05 | NUR ---
ARRIVAL PT ARRIVED FROM ICU TO [facility] 329 AT THIS TIME. REPORT RECEIVED FROM ROSALVA ORTEGA AND ASSUMED CARE OF PT
[2017-05-06] MEDS ORDERED: ZOFRAN IV PRN (11:30)
[2017-05-06] MEDS ORDERED: TYLENOL PO PRN (14:00)
--- NOTE | 2017-05-06 17:04 | NUR ---
STATUS PT STARING OFF IN ROOM. MORE EFFORT NEEDED TO GET PTS ATTENTION. WATER NOTED ON FLOOR. PT ANSWERS APPROPRIATELY BUT UNABLE TO TELL THIS NURSE WHAT'S WRONG. El RANDALL, NETWORK SECURITY ARCHITECT NOTIFIED OF CHANGE. NEW ORDERS RECEIVED FOR STAT CBC, CMP, ABG, AND EKG. KATE QUINTANILLA, RT ON FLOOR AND AWARE OF NEW ORDERS
--- NOTE | 2017-05-06 17:16 | PCM.EKG ---
[facility] Test Date: 2017-05-06 Test Time: 17:10:13 Pat Name: ELPIDIO LEONE Department: Patient ID: [id number] Room: 329 A Gender: M Messenger Copy: OFELIA : 1965 Requested By: DAVINA RANDALL Order Number: [id number] Reading MD: Kevin Lawson Measurements Intervals [place] Rate: 85 P: [place]: 142 QRS: -36 QRSD: 158 T: 9 QT: 390 QTc: 464 Interpretive Statements Normal sinus rhythm Left axis deviation Right bundle branch block Abnormal ECG Compared to ECG 05/06/2017 07:31:40 Atrial premature complex(es) no longer present Electronically Signed On 05-11-2017 13:16:31 LENS MATCHER by Kevin Lawson Please click the below link to view image of tracing.
[2017-05-06 17:21] LABS: BASOPHIL % 0.2 % (0.0-0.2); EOSINOPHIL % 0.1 % (0.0-5.0); HEMOGLOBIN 14.1 g/dL (13.9-16.3); LYMPHOCYTES # 1.5 10^3/uL (1.0-4.8); LYMPHOCYTES % 8.2 % (24.0-44.0); MEAN CELL HGB 24.9 pg (26-34); MEAN CELL HGB CONCENTRATION 29.3 g/dL (33-37); MEAN CORP VOLUME 85.2 fL (78-100); MEAN PLATELET VOLUME 10.9 fL (7.8-11.0); MONOCYTES # 1.7 10^3/uL (0.3-0.8); MONOCYTES % 9.3 % (5.0-12.0); NEUTROPHIL # 15.1 10^3/uL (1.8-7.7); NEUTROPHILS % 81.5 % (41.0-85.0); RED CELL DISTRIBUTION WIDTH 18.4 % (11.5-14.5); WHITE BLOOD CELL 18.5 10^3/uL (4.5-11.0)
[2017-05-06 17:25] LABS: ABG PCO2 47.8 mmHg (35.0-45.0); ABG PH 7.409 (7.350-7.450); BE(B) 3.9 mmol/L (-2.0-2.0); HCO3act 29.6 mmol/L (22.0-26.0); pO2 85.8 mmHg (75.0-100.0)
[2017-05-06 17:41] LABS: CALCIUM 8.5 mg/dL (8.4-10.5); CARBON DIOXIDE 32.8 mmol/L (20.0-32)
--- NOTE | 2017-05-06 18:02 | NUR ---
LABS LABS CALLED IN TO El RANDALL NP. NO NEW ORDERS RECEIVED
--- NOTE | 2017-05-06 18:45 | NUR ---
Report Received report from Karoline Lynch LVN
--- NOTE | 2017-05-06 18:54 | NUR ---
REPORT REPORT GIVEN TO ONCOMING SHIFT AND CARE RELINQUISHED
[2017-05-06] MEDS: NORCO 10MG PO PRN (21:30)
[2017-05-07 00:34] VITALS: BP 117/60
[2017-05-07] MEDS: ZOSYN 3.375 GM/50 ML 50 ML IV SCH ×4 (01:09→19:04)
[2017-05-07] MEDS: NORCO 10MG PO PRN ×4 (02:19→19:01)
--- NOTE | 2017-05-07 02:24 | NUR ---
Dressing change complete. Packed with Iodoform gauze , covered with 4X4 and ABD pad. [place] 10 PO administered for pain 01/19.
[2017-05-07 04:12] VITALS: BP 154/95
[2017-05-07] MEDS: FLAGYL 500MG/ 100 ML NS 100 ML IV SCH ×3 (05:25→22:09)
[2017-05-07] MEDS: HNS 1000ML 1,000 ML IV SCH ×3 (05:38→20:20)
[2017-05-07 05:43] LABS: BASOPHIL % 0.2 % (0.0-0.2); EOSINOPHIL % 0.1 % (0.0-5.0); HEMOGLOBIN 14.6 g/dL (13.9-16.3); LYMPHOCYTES # 1.9 10^3/uL (1.0-4.8); LYMPHOCYTES % 11.8 % (24.0-44.0); MEAN CORP VOLUME 83.5 fL (78-100); MONOCYTES # 1.7 10^3/uL (0.3-0.8); MONOCYTES % 10.3 % (5.0-12.0); NEUTROPHIL # 12.4 10^3/uL (1.8-7.7); NEUTROPHILS % 76.9 % (41.0-85.0); RED CELL DISTRIBUTION WIDTH 18.5 % (11.5-14.5); WHITE BLOOD CELL 16.2 10^3/uL (4.5-11.0)
[2017-05-07 05:56] LABS: CALCIUM 8.5 mg/dL (8.4-10.5); CARBON DIOXIDE 28.6 mmol/L (20.0-32)
--- NOTE | 2017-05-07 06:44 | NUR ---
Report Report given to Karoline Lynch LVN
--- NOTE | 2017-05-07 07:00 | NUR ---
REPORT REPORT RECEIVED FROM PREVIOUS SHIFT AND ASSUMED CARE OF PT
--- NOTE | 2017-05-07 07:39 | PRM.PN ---
Progress Note Subjective Date: May 07, 2017 Time: 07:37 Physician Notes: Patient feels better. Has been transferred to the floor. Objective Review IO, Exams,& Results Problems Acute/Active Problems: (1) Diabetes type 2, uncontrolled (2) Perirectal abscess (3) Sepsis Vital Signs Date Time Temp Pulse Resp B/P (MAP) Pulse Ox O2 Delivery O2 Flow Rate FiO2 05/07/17 04:12 97.3 73 20 154/95 (114) 94 Room Air 05/07/17 02:40 3.00 32 Intake and Output 05/07/17 07:00 Intake Total 3448 ml Output Total 3500 ml Balance -52 ml Intake Oral 1520 ml IV Total 1928 ml Output Urine Total 3500 ml # Voids 1 Laboratory Tests Test 05/05/17 18:25 05/06/17 05:02 05/06/17 06:14 05/06/17 07:26 White Blood Count 19.8 10^3/uL 18.3 10^3/uL Red Blood Count 5.93 10^6/uL 5.54 10^6/uL Hemoglobin 14.8 g/dL 13.7 g/dL Hematocrit 51.8 % 48.0 % Mean Corpuscular Volume 87.4 fL 86.6 fL Mean Corpuscular Hemoglobin 25.0 pg 24.7 pg Mean Corpuscular Hemoglobin Concent 28.6 g/dL 28.5 g/dL Red Cell Distribution Width 19.0 % 18.5 % Platelet Count 217 10^3/uL 211 10^3/uL Mean Platelet Volume 10.6 fL 11.6 fL Neutrophils (%) (Auto) 87.9 % 85.4 % Lymphocytes (%) (Auto) 4.6 % 6.7 % Monocytes (%) (Auto) 6.6 % 7.3 % Neutrophils # (Auto) 17.4 10^3/uL 15.6 10^3/uL Lymphocytes # (Auto) 0.9 10^3/uL 1.2 10^3/uL Monocytes # (Auto) 1.3 10^3/uL 1.3 10^3/uL Absolute Immature Granulocyte (auto 0.13 10^3 u/L 0.09 10^3 u/L Eosinophils % 0.0 % 0.0 % Basophils % 0.2 % 0.1 % Basophils # 0.0 10^3/uL 0.0 10^3/uL Eosinophil Count 0.0 10^3/uL 0.0 10^3/uL Sodium Level 132 mmol/L 132 mmol/L Potassium Level 5.0 mmol/L 4.6 mmol/L Chloride Level 98.0 mmol/L 97.0 mmol/L Carbon Dioxide Level 31.2 mmol/L 31.0 mmol/L Glucose Level 235 mg/dL 200 mg/dL Blood Urea Nitrogen 29 mg/dL 27 mg/dL Creatinine 1.49 mg/dL 1.19 mg/dL Calcium Level 8.1 mg/dL 8.2 mg/dL Anion Gap 7.8 8.6 Estimated GFR () 60.7 78.6 BUN/Creatinine Ratio 19.0 22.0 Percent Immature Gran (Cell Imm) 0.70 % 0.50 % Differential Total Cells Counted 100 #CELLS Segmented Neutrophils 91 % Lymphocytes 5 % Monocytes 4 % Platelet Estimate ADEQUATE Platelet Morphology NORMAL Blood Gas Sample Site RT RADIAL ARTERY Blood Gas pH 7.281 Blood Gas PCO2 62.2 mmHg Blood Gas PO2 44.7 mmHg Blood Gas HCO3 28.6 mmol/L Blood Gas Base Excess 0.2 mmol/L [place] Test POSITIVE Arterial Blood Oxygen Saturation 81.4 % Deoxyhemoglobin 18.0 % Carboxyhemoglobin 2.6 % Methemoglobin 0.5 % Total Hemoglobin 15.7 % Total Oxygen Concentration 17.4 % Lactic Acid (Blood Gas) 1.2 MMOL/L Blood Gas Temperature 37 Oxygen Delivery Method (LAB) RA FiO2 21 % Bicarbonate 30.5 mmol/L Test 05/06/17 09:30 05/06/17 17:06 05/07/17 05:10 Vancomycin Level Trough < 2.0 ug/mL White Blood Count 18.5 10^3/uL 16.2 10^3/uL Red Blood Count 5.66 10^6/uL 5.83 10^6/uL Hemoglobin 14.1 g/dL 14.6 g/dL Hematocrit 48.2 % 48.7 % Mean Corpuscular Volume 85.2 fL 83.5 fL Mean Corpuscular Hemoglobin 24.9 pg 25.0 pg Mean Corpuscular Hemoglobin Concent 29.3 g/dL 30.0 g/dL Red Cell Distribution Width 18.4 % 18.5 % Platelet Count 235 10^3/uL 228 10^3/uL Mean Platelet Volume 10.9 fL 11.0 fL Neutrophils (%) (Auto) 81.5 % 76.9 % Lymphocytes (%) (Auto) 8.2 % 11.8 % Monocytes (%) (Auto) 9.3 % 10.3 % Neutrophils # (Auto) 15.1 10^3/uL 12.4 10^3/uL Lymphocytes # (Auto) 1.5 10^3/uL 1.9 10^3/uL Monocytes # (Auto) 1.7 10^3/uL 1.7 10^3/uL Absolute Immature Granulocyte (auto 0.13 10^3 u/L 0.12 10^3 u/L Eosinophils % 0.1 % 0.1 % Basophils % 0.2 % 0.2 % Basophils # 0.0 10^3/uL 0.0 10^3/uL Eosinophil Count 0.0 10^3/uL 0.0 10^3/uL Blood Gas Sample Site RT RADIAL ARTERY Blood Gas pH 7.409 Blood Gas PCO2 47.8 mmHg Blood Gas PO2 85.8 mmHg Blood Gas HCO3 29.6 mmol/L Blood Gas Base Excess 3.9 mmol/L [place] Test POSITIVE Arterial Blood Oxygen Saturation 97.2 % Deoxyhemoglobin 2.7 % Carboxyhemoglobin 2.9 % Methemoglobin 0.1 % Total Hemoglobin 16.0 % Total Oxygen Concentration 21.2 % Lactic Acid (Blood Gas) 1.4 MMOL/L Blood Gas Temperature 37 Oxygen Delivery Method (LAB) NASAL CANNULA FiO2 28 % Sodium Level 157 mmol/L 133 mmol/L Potassium Level 5.1 mmol/L 4.6 mmol/L Chloride Level 114.0 mmol/L 98.0 mmol/L Carbon Dioxide Level 32.8 mmol/L 28.6 mmol/L Bicarbonate 31.0 mmol/L Anion Gap 15.3 11.0 Blood Urea Nitrogen 27 mg/dL 27 mg/dL Creatinine 1.24 mg/dL 1.18 mg/dL Estimated GFR () 75.0 79.4 BUN/Creatinine Ratio 21.0 22.0 Glucose Level 205 mg/dL 202 mg/dL Calcium Level 8.5 mg/dL 8.5 mg/dL Total Bilirubin 0.9 mg/dL Aspartate Amino Transf (AST/SGOT) 18 U/L Alanine Aminotransferase (ALT/SGPT) 28 U/L Alkaline Phosphatase 73 U/L Total Protein 7.6 g/dL Albumin 2.5 g/dL Globulin 5.1 Percent Immature Gran (Cell Imm) 0.70 % 0.70 % Current Medications Medications (Trade) Dose Ordered Sig/Rico PRN Reason Start Time Stop Time Status Last Admin Acetaminophen (Tylenol) 650 mg Q6H PRN PAIN MILD 05/06/17 14:00 06/03/17 07:59 Acetaminophen/ Hydrocodone Bitart ([place] 10mg) 1 each Q6H PRN PAIN 05/06/17 14:30 06/02/17 14:29 05/07/17 07:08 Amlodipine Besylate (Norvasc) 10 mg DAILY 05/07/17 09:00 06/05/17 08:59 Carvedilol (Coreg) 6.25 mg BID 05/06/17 21:00 06/04/17 20:59 05/06/17 21:04 Enoxaparin Sodium (Lovenox) 40 mg DAILY24 05/07/17 09:00 06/04/17 08:59 Furosemide (Lasix) 40 mg DAILY 05/07/17 09:00 06/05/17 08:59 Insulin Human Regular (Humulin R) Y ACHS 05/06/17 11:30 06/02/17 17:29 05/06/17 12:19 Metronidazole 100 ml @ 100 mls/hr Q8HR 05/06/17 14:00 06/03/17 17:59 05/07/17 05:25 Morphine Sulfate (Morphine Sulfate) 4 mg Q4H PRN PAIN 05/06/17 10:30 06/02/17 14:29 Ondansetron HCl (Zofran) 4 mg Q6H PRN NAUSEA / VOMITING 05/06/17 11:30 06/03/17 17:29 Pantoprazole Sodium (Protonix Iv) 40 mg DAILY 05/07/17 09:00 06/02/17 14:29 Piperacillin/ Tazobactam/ Dextrose 50 ml @ 50 mls/hr Q6 05/06/17 12:00 06/02/17 15:59 05/07/17 06:26 Sodium Chloride 1,000 ml @ 100 mls/hr Q10H 05/06/17 10:00 06/04/17 10:29 05/07/17 05:38 Tramadol HCl (Ultram) 50 mg Q6 PRN PAIN 05/06/17 12:00 06/05/17 07:29 11/26/17 05:38 Orders - CHRISTAL WHITE MD, Dc (05/07/17 07:34) Heart: Regular rate, Other (Heart rate is 85/m) Abdomen: Normal bowel sounds, Soft, No tenderness, Other (Dressings being changed regularly) Lungs: Clear to auscultation Skin: Other (Dressing being changed regularly) Assessment & Plan: Assessment Improving Plan 1) DC [place] 2) Ambulate as tolerated CHRISTAL WHITE MD May 07, 2017 07:38
[2017-05-07 07:40] VITALS: BP 144/99
[2017-05-07] MEDS: COREG PO SCH ×2 (08:32→20:15)
[2017-05-07] MEDS: LASIX IV SCH (08:32)
[2017-05-07] MEDS: PROTONIX IV IV SCH (08:32)
[2017-05-07] MEDS: NORVASC PO SCH (08:33)
[2017-05-07] MEDS: HUMULIN R SQ SCH ×4 (08:42→20:17)
[2017-05-07] MEDS: LOVENOX SQ SCH (08:56)
--- NOTE | 2017-05-07 10:48 | PRM.PN ---
Subjective Subjective Date: May 07, 2017 Time: 10:44 Subjective Wound care continues per surgery direction. Patient History: Patient reports no known family medical history. VTE VTE Risk Total Score: 5 VTE Risk Score VTE Risk: Score 0-1 = Low Risk (Aggressive mobilization; early ambulation; no VTE prophylaxis required) Score 2: Moderate Risk (Intermittent/Pneumatic Compression Device OR Lovenox/Heparin/Coumadin) Score 3-4: High Risk (Intermittent/Pneumatic Compression Device AND Lovenox/Heparin/Coumadin) Score > or =5: Highest Risk (Intermittent/Pneumatic Compression Device AND Lovenox/Heparin/Coumadin) Review of Systems Constitutional: Fever, Chills Gastrointestinal: Other (perirectal pain) Allergies: Coded Allergies: No Known Allergies (Unverified , 05/03/17) Scheduled Glyburide (Glyburide), 1 TAB PO BID, (Reported) Glyburide (Glyburide), 1 TAB PO DAILY24, (Reported) Losartan/Hydrochlorothiazide (Losartan-Hctz 100-25 Mg Tab), 1 TAB PO DAILY, ( Reported) Metformin Hcl (Metformin Hcl), 1 TAB PO BID, (Reported) Objective Vitals and I/O Vital Sign - Last 24 Hours 05/06/17 05/06/17 05/06/17 05/06/17 10:45 11:01 11:36 16:59 Temp 97.9 96.9 Pulse 78 63 Resp 20 17 B/P (MAP) 125/65 (85) 121/65 (83) Pulse Ox 95 94 99 05/06/17 05/06/17 05/07/17 05/07/17 20:05 21:04 00:34 00:38 Temp 98.8 97.6 Pulse 91 73 79 Resp 20 20 B/P (MAP) 125/86 (99) 125/86 117/60 (79) Pulse Ox 73 90 O2 Delivery Room Air Room Air Room Air 05/07/17 05/07/17 05/07/17 05/07/17 02:40 02:40 04:12 07:40 Temp 97.3 98.2 Pulse 79 73 76 Resp 16 16 20 20 B/P (MAP) 154/95 (114) 144/99 (114) Pulse Ox 92 92 94 96 O2 Delivery Nasal Cannula Room Air Room Air O2 Flow Rate 3.00 FiO2 32 05/07/17 05/07/17 05/07/17 05/07/17 08:19 08:32 08:32 08:33 Pulse 78 78 78 Resp 18 B/P (MAP) 144/99 144/99 144/99 Pulse Ox 90 O2 Delivery Room Air O2 Flow Rate 3.00 FiO2 32 05/07/17 09:31 O2 Delivery Room Air Intake and Output 05/06/17 05/06/17 05/07/17 15:00 23:00 07:00 Intake Total 1628 ml 1580 ml 240 ml Output Total 600 ml 1800 ml 1100 ml Balance 1028 ml -220 ml -860 ml General: Alert, Oriented X3, Cooperative, No acute distress HEENT: Atraumatic Neck: Supple Lungs: Clear to auscultation Heart: Regular rate Neuro: Normal speech, Normal tone Psych/Mental Status: Mental status NL, Mood NL Medication Reconciliation Scheduled Glyburide (Glyburide), 1 TAB PO BID, (Reported) Glyburide (Glyburide), 1 TAB PO DAILY24, (Reported) Losartan/Hydrochlorothiazide (Losartan-Hctz 100-25 Mg Tab), 1 TAB PO DAILY, ( Reported) Metformin Hcl (Metformin Hcl), 1 TAB PO BID, (Reported) Assessment/Plan Assessment/Plan Problems: (1) Diabetes type 2, uncontrolled Status: Acute ICD Code: E11.65 - Type 2 diabetes mellitus with hyperglycemia SNOMED: 74885556, 073746150 (2) Perirectal abscess Status: Acute ICD Code: K61.1 - Rectal abscess SNOMED: 24641163, 642711161 (3) Sepsis Status: Acute SEVERITY: MODERATE PERSISTENT COMPLICATION TYPE: W/ ACUTE EXACERBATION ICD Code: A41.9 - Sepsis, unspecified organism SNOMED: 82143371 Patient History: Patient reports no known family medical history. Plan Continue wound care per surgery directions. Blood sugar control on sliding scale insulin. Continue antibiotic therapy. Ambulate as tolerated. Problem Qualifiers (1) Diabetes type 2, uncontrolled: Diabetes mellitus complication status: with hyperglycemia Diabetes mellitus mcc insulin use: without mcc use Qualified Codes: E11.65 - Type 2 diabetes mellitus with hyperglycemia (2) Sepsis: Sepsis type: sepsis due to unspecified organism Qualified Codes: A41.9 - Sepsis, unspecified organism DAVINA RANDALL APRN, NP May 07, 2017 10:48
[2017-05-07 11:43] VITALS: BP 143/88
[2017-05-07] MEDS ORDERED: MORPHINE SULFATE IV PRN (12:00)
[2017-05-07 16:28] VITALS: BP 149/86
--- NOTE | 2017-05-07 18:31 | NUR ---
REPORT REPORT GIVEN TO ONCOMING SHIFT AND CARE RELINQUISHED
[2017-05-07 19:29] VITALS: BP 139/82
[2017-05-07] MEDS ORDERED: LANOLIN HYDROUS TP ONE (22:22)
--- NOTE | 2017-05-07 22:37 | NUR ---
changed drsg to buttock, washed soiled area around drsg with soap and water, rinsed with warm water. took drsg off cleaned with wound cleanser and 4x4's, Nikole BLACKWELL packed wound with 1in iodaform,4x4 and an abd pad,and medipore tape. pt's skin where tape was placed skin red and irritated, used less tape to secure drsg and applied lanolin cream to red area.
[2017-05-08 00:15] VITALS: BP 128/76
[2017-05-08] MEDS: ZOSYN 3.375 GM/50 ML 50 ML IV SCH ×5 (00:31→20:25)
[2017-05-08 05:26] LABS: BASOPHIL % 0.3 % (0.0-0.2); EOSINOPHIL # 0.1 10^3/uL (0.0-0.2); EOSINOPHIL % 0.4 % (0.0-5.0); HEMOGLOBIN 14.8 g/dL (13.9-16.3); LYMPHOCYTES # 2.1 10^3/uL (1.0-4.8); LYMPHOCYTES % 15.1 % (24.0-44.0); MEAN CELL HGB 24.9 pg (26-34); MEAN CELL HGB CONCENTRATION 30.5 g/dL (33-37); MEAN CORP VOLUME 81.6 fL (78-100); MEAN PLATELET VOLUME 10.4 fL (7.8-11.0); MONOCYTES # 1.6 10^3/uL (0.3-0.8); MONOCYTES % 11.9 % (5.0-12.0); NEUTROPHIL # 9.5 10^3/uL (1.8-7.7); NEUTROPHILS % 69.9 % (41.0-85.0); RED CELL DISTRIBUTION WIDTH 19.1 % (11.5-14.5); WHITE BLOOD CELL 13.7 10^3/uL (4.5-11.0)
[2017-05-08 05:58] LABS: CALCIUM 8.8 mg/dL (8.4-10.5); CARBON DIOXIDE 34.4 mmol/L (20.0-32)
[2017-05-08] MEDS: FLAGYL 500MG/ 100 ML NS 100 ML IV SCH ×3 (06:04→22:34)
[2017-05-08 06:27] LABS: EOSINOPHIL 1 % (1-4); LYMPHOCYTE 7 % (25-36); MONOCYTE 21 % (3-9); OTHER CELL TYPE 2; SEGMENTED NEUTROPHILS 69 % (31-76)
[2017-05-08 06:28] LABS: ANISOCYTOSIS 1+ (NEGATIVE)
--- NOTE | 2017-05-08 06:30 | NUR ---
REPORT RECEIVED REPORT AND ASSUMED CARE
[2017-05-08 07:22] VITALS: BP 145/88
[2017-05-08] MEDS: HUMULIN R SQ SCH ×4 (07:22→20:26)
[2017-05-08] MEDS: LASIX IV SCH (09:02)
[2017-05-08] MEDS: COREG PO SCH ×2 (09:02→20:25)
[2017-05-08] MEDS: NORVASC PO SCH (09:02)
[2017-05-08] MEDS: PROTONIX IV IV SCH (09:02)
[2017-05-08] MEDS: LOVENOX SQ SCH (09:12)
--- NOTE | 2017-05-08 09:21 | NUR ---
PROVIDED TOWELS, WASHCLOTHS, SOAP, AND DEODORANT AT THIS TIME FOR PATIENT TO BATHE.
--- NOTE | 2017-05-08 10:00 | NUR ---
DISCHARGE PLAN CM VISITED WITH PATIENT CONCERNING HIS DISCHARGE PLAN AND NEED. PATIENT STATED HE LIVES @ HOME WITH HIS . 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 CM EDUCATED PATIENT ON HIS CONTINUED WOUND CARE NEED. PATIENT STATED HE HAD ALREADY SPOKEN WITH Shree HUSAIN PT DIRECTOR AND ARRANGED TO COME OUT PATIENT @ [facility] PHYSICAL THERAPY DEPARTMENT. PATIENT THEN STATED THAT HE HAD HIS FIRST APPOINTMENT MADE FOR MONDAY @ 0800 THROUGH October WELL. CM THEN NOTIFIED PHYSICAL THERAPY DEPARTMENT AND SPOKE TO Shree HUSAIN WHOM CONFIRMED PATIENTS APPOINTMENT TIME/DATE FOR MONDAY AND STATED PHYSICAL THERAPY DEPARTMENT WOULD CONTINUE TO ACCOMMODATE PATIENTS APPOINTMENT TIMES MUCH THEY POSSIBLY COULD PER PATIENT REQUEST. CM THEN NOTIFIED MED SURG CHARGE NURSE Lauri BOWDEN RN OF ABOVE DOCUMENTATIONS. CONTACT INFORMATION PROVIDED TO PATIENT. CURRENT GOAL FOR PATIENT IS TO RETURN BACK HOME WITH AND CONTINUE ANY WOUND CARE NEEDS OUT PATIENT @ [facility] PHYSICAL THERAPY DEPARTMENT.
--- NOTE | 2017-05-08 11:03 | NUR ---
NAUSEA ZOFRAN 4MG GIVEN IV
--- NOTE | 2017-05-08 11:30 | NUR ---
WOUND CARE JENN RN AT [facility] TAKING PICS AND DOING DRESSING CHANGE. PT TOLERATED WELL. SCROTUM SUPPORT APPLIED
--- NOTE | 2017-05-08 11:34 | NUR ---
PATIENT REFUSES TO WEAR GOWN. PROVIDED PATIENT WITH NEW GOWN. OFFERED HELP TO PUT ON GOWN. PATIENT REFUSED.
[2017-05-08 11:46] VITALS: BP 136/74
--- NOTE | 2017-05-08 12:46 | PRM.PN ---
Subjective Subjective Date: May 08, 2017 Time: 12:35 Subjective Pt feeling better; pain under control Patient History: Patient reports no known family medical history. VTE VTE Risk Total Score: 5 VTE Risk Score VTE Risk: Score 0-1 = Low Risk (Aggressive mobilization; early ambulation; no VTE prophylaxis required) Score 2: Moderate Risk (Intermittent/Pneumatic Compression Device OR Lovenox/Heparin/Coumadin) Score 3-4: High Risk (Intermittent/Pneumatic Compression Device AND Lovenox/Heparin/Coumadin) Score > or =5: Highest Risk (Intermittent/Pneumatic Compression Device AND Lovenox/Heparin/Coumadin) Antico:Hep/LMWH/Coum/Xarelto: No Mechanical device ordered: No Review of Systems Constitutional: No: Fever, Sweats, Weakness Eyes: No: Pain, Vision change, Conjunctivae inflammation, Eyelid inflammation ENT: No: Ear pain, Ear discharge, Nose pain, Nose discharge, Nose congestion Respiratory: No: Cough, Dry, Shortness of breath, SOB with excertion, Wheezing Cardiovascular: No: Chest Pain, Palpitations, Orthopnea, Paroxysmal Noc. Dyspnea Gastrointestinal: No: Nausea, Vomiting, Abdominal Pain Genitourinary: No Dysuria, No Frequency Musculoskeletal: No: neck pain, shoulder pain, arm pain, back pain Skin: No: Jaundice Neurological: No: Weakness, Numbness, Confusion, Seizures Allergies: Coded Allergies: No Known Allergies (Unverified , 05/03/17) Scheduled Glyburide (Glyburide), 1 TAB PO BID, (Reported) Glyburide (Glyburide), 1 TAB PO DAILY24, (Reported) Losartan/Hydrochlorothiazide (Losartan-Hctz 100-25 Mg Tab), 1 TAB PO DAILY, ( Reported) Metformin Hcl (Metformin Hcl), 1 TAB PO BID, (Reported) Objective Vitals and I/O Vital Sign - Last 24 Hours 05/07/17 05/07/17 05/07/17 05/07/17 16:28 19:29 19:45 20:15 Temp 97.8 97.6 Pulse 77 85 85 Resp 20 20 B/P (MAP) 149/86 (107) 139/82 (101) 139/82 Pulse Ox 94 92 O2 Delivery Room Air Room Air Room Air 05/07/17 05/08/17 05/08/17 05/08/17 20:54 00:15 07:22 08:08 Temp 97.7 98.1 Pulse 73 85 60 Resp 16 19 18 B/P (MAP) 128/76 (93) 145/88 (107) Pulse Ox 92 93 91 O2 Delivery Nasal Cannula Room Air Room Air Room Air 05/08/17 05/08/17 05/08/17 05/08/17 09:02 09:02 09:02 11:46 Temp 98.2 Pulse 60 60 66 Resp 20 B/P (MAP) 145/88 145/88 145/88 136/74 (94) Pulse Ox 93 O2 Delivery Room Air Intake and Output 05/07/17 05/07/17 05/08/17 15:00 23:00 07:00 Intake Total 1710 ml Balance 1710 ml General: Alert, Oriented X3, No acute distress HEENT: Atraumatic, Mucous membr. moist/pink Neck: Supple, No LAD Lungs: Clear to auscultation, Normal air movement Heart: Normal S1, Normal S2 Abdomen: Normal bowel sounds, Soft Extremities: No cyanosis Neuro: Normal speech Psych/Mental Status: Mental status NL, Mood NL Medication Reconciliation Scheduled Glyburide (Glyburide), 1 TAB PO BID, (Reported) Glyburide (Glyburide), 1 TAB PO DAILY24, (Reported) Losartan/Hydrochlorothiazide (Losartan-Hctz 100-25 Mg Tab), 1 TAB PO DAILY, ( Reported) Metformin Hcl (Metformin Hcl), 1 TAB PO BID, (Reported) Course Blood Pressure Systolic: 136 Blood Pressure Diastolic: 74 Blood Pressure Mean: 94 Assessment/Plan Assessment/Plan Assessment/Plan 51 yo male with buttock abscess/cellulitis s/p I&D, DM, HTN, morbid obesity - cont wound care and IV abx - follow sugars - clinically improving - increase activity Problems: Patient History: Patient reports no known family medical history. LYDIA WAYNE MD May 08, 2017 12:46
[2017-05-08] MEDS: HNS 1000ML 1,000 ML IV SCH ×2 (13:34→22:34)
[2017-05-08 16:24] VITALS: BP 141/65
[2017-05-08 20:10] VITALS: BP 160/71
--- NOTE | 2017-05-08 22:46 | PNH ---
DATE: SUBJECTIVE: A 51-year-old male in no acute distress. He was seen in the room today with the wound care nursing service. OBJECTIVE: VITAL SIGNS: Most recent temperature 98.3 degrees Fahrenheit, pulse 81, respiratory rate 22, and blood pressure 141/65 mmHg. EXTREMITIES: The right buttocks wound has continued drainage. There is decreased necrotic tissue. There is increased granulation tissue and the erythema around it has improved, however, he has some contact dermatitis in the area, consistent with retained moisture. LABORATORY DATA: Laboratory studies today: His white count is improved to 13.7, hemoglobin 14.8, and platelet count 264. Chemistry today showed BUN 24 and creatinine 1.09. His last blood gas, which was on the , and it has improved. His cultures are essentially noncontributory. The final pathology report is noted regarding the necrotic tissue. SURGICAL ASSESSMENT: 1. Necrotizing acute soft tissue infection of the right buttock. 2. Sepsis secondary to the above. 3. Morbid obesity. PLAN: 1. The patient was seen and examined and the chart was reviewed. 2. He will need to arrange with the wound care service and the case management service for outpatient wound care. 3. The patient is to follow up with me as needed. 4. He is allowed to go to work when he feels up for it. Lg Rubin DO DR: MIKE/hai JOB# [id number] CC: Rocio Venegas NP
[2017-05-09] VITALS (7 sets, daily range): BP systolic 128–172; BP diastolic 62–92
[2017-05-09] MEDS: ZOSYN 3.375 GM/50 ML 50 ML IV SCH ×4 (01:50→13:10)
[2017-05-09] MEDS: NORCO 10MG PO PRN (01:56)
[2017-05-09 05:24] LABS: BASOPHIL # 0.1 10^3/uL (0.0-0.1); BASOPHIL % 0.7 % (0.0-0.2); EOSINOPHIL # 0.1 10^3/uL (0.0-0.2); EOSINOPHIL % 0.6 % (0.0-5.0); HEMOGLOBIN 14.8 g/dL (13.9-16.3); LYMPHOCYTES # 2.8 10^3/uL (1.0-4.8); LYMPHOCYTES % 19.2 % (24.0-44.0); MEAN CELL HGB 24.7 pg (26-34); MEAN CELL HGB CONCENTRATION 30.1 g/dL (33-37); MEAN CORP VOLUME 82.1 fL (78-100); MEAN PLATELET VOLUME 10.8 fL (7.8-11.0); MONOCYTES # 1.8 10^3/uL (0.3-0.8); MONOCYTES % 12.1 % (5.0-12.0); NEUTROPHILS % 62.2 % (41.0-85.0); RED CELL DISTRIBUTION WIDTH 19.2 % (11.5-14.5); WHITE BLOOD CELL 14.5 10^3/uL (4.5-11.0)
[2017-05-09 05:42] LABS: CALCIUM 8.4 mg/dL (8.4-10.5); CARBON DIOXIDE 35.4 mmol/L (20.0-32)
[2017-05-09] MEDS: FLAGYL 500MG/ 100 ML NS 100 ML IV SCH ×2 (06:45→14:00)
[2017-05-09] MEDS: HUMULIN R SQ SCH ×3 (07:30→17:30)
[2017-05-09] MEDS: HNS 1000ML 1,000 ML IV SCH ×2 (07:39→17:39)
[2017-05-09] MEDS: COREG PO SCH (08:34)
[2017-05-09] MEDS: LASIX IV SCH (08:35)
[2017-05-09] MEDS: PROTONIX IV IV SCH (08:35)
[2017-05-09] MEDS: NORVASC PO SCH (08:35)
[2017-05-09] MEDS: LOVENOX SQ SCH (08:39)
--- NOTE | 2017-05-09 11:00 | NUR ---
Wound care Laurie RN at bedside for wound care
[2017-05-09] MEDS ORDERED: CIPR500T86 PO (17:20)
[2017-05-09] MEDS ORDERED: METR500T PO (17:20)
--- NOTE | 2017-05-09 23:34 | DSH ---
DATE OF DISCHARGE: 05/09/2017 ADMITTING DIAGNOSES: Buttock abscess and cellulitis with type 2 diabetes mellitus, hypertension, and sepsis. DISCHARGE DIAGNOSES: Buttock abscess and cellulitis status post incision and drainage with debridement with resolving sepsis and type 2 diabetes mellitus and hypertension. HOSPITAL COURSE: The patient is a 51-year-old gentleman who came in with a buttock infection. It was definitely necrotic appearing. He does have underlying high blood pressure and diabetes. He met sepsis criteria and was started on prompt IV antibiotics with IV fluid resuscitation. Surgery was consulted and an I and D was done with local debridement. Cultures are coming back positive for diphtheroids only, but he is clinically improving, we have been doing daily wound care per wound care nursing. His vital signs are stable, he is afebrile. So currently, his sepsis has resolved and he wants to go home and do wound care with his primary care provider. So at this point, we are discharging him to home. I am going to put him on Cipro and Flagyl for the next 7 days. He is to go see CHAYO Davis, his primary care provider tomorrow morning at her office so that wound care can be continued on a daily basis and he is to follow up with Dr. Lg Rubin, our surgeon, in 2 weeks' time. Resume home diet and activity level, and resume home medications. Again, I am going to put him on Cipro and Flagyl for the next 7 days. Rcoio Carmona MD DR: MAICOL/hai JOB# [id number]
== END 2017-05-09 18:00 | disposition home or self-care (01) | DRG 853 ==
LOC: ER 09:48 → ICU 11:53 → MS 05-06 11:24
PROVIDERS: ADMIT Internal Medicine; ATTEND Pediatrics
PROC: 0JB90ZZ Excision of Buttock Subcutaneous Tissue and Fascia, Open Approach (ICD-10-PCS; principal; 2017-05-03 13:01)
DX: A41.9 Sepsis, unspecified organism (principal); J96.00 Acute respiratory failure, unspecified whether with hypoxia or hypercapnia; K61.1 Rectal abscess; L02.31 Cutaneous abscess of buttock; L03.317 Cellulitis of buttock; Z68.43 Body mass index [BMI] 50.0-59.9, adult; E11.65 Type 2 diabetes mellitus with hyperglycemia; E66.01 Morbid (severe) obesity due to excess calories; I10 Essential (primary) hypertension; F17.210 Nicotine dependence, cigarettes, uncomplicated; Z79.899 Other long term (current) drug therapy; Z79.84 Long term (current) use of oral hypoglycemic drugs; Z90.49 Acquired absence of other specified parts of digestive tract
CPT/HCPCS: 36415; 76856; 80048; 80053; 80061; 80202; 81000; 82550; 82553; 82803; 82948; 83036; 83880; 84443; 84484; 85014; 85018; 85025; 85610; 87040; 87070; 87075; 88304; 93005; 96361; 96365; 99285; C9113; J1650; J1815; J1940; J2270; J2405; J2543; J3010; J3301; J3490; J7030; J7050; J3370

== ENCOUNTER → 2017-07-18 | Outpatient (CLI) | payer BC, OTHER ==
[~2017-07-18] MED LIST: CIPR500T86 PO; GLYB5TAB3 PO; LOSA1TAB22 PO; METF10002 PO; METR500T PO
[2017-07-18 10:00] LABS: BASOPHIL # 0.1 10^3/uL (0.0-0.1); BASOPHIL % 0.4 % (0.0-0.2); EOSINOPHIL # 0.1 10^3/uL (0.0-0.2); EOSINOPHIL % 0.8 % (0.0-5.0); HEMOGLOBIN 17.4 g/dL (13.9-16.3); LYMPHOCYTES # 2.7 10^3/uL (1.0-4.8); LYMPHOCYTES % 15.6 % (24.0-44.0); MEAN CELL HGB 26.2 pg (26-34); MEAN CELL HGB CONCENTRATION 31.4 g/dL (33-37); MEAN CORP VOLUME 83.3 fL (78-100); MEAN PLATELET VOLUME 10.4 fL (7.8-11.0); MONOCYTES # 1.2 10^3/uL (0.3-0.8); MONOCYTES % 6.7 % (5.0-12.0); NEUTROPHIL # 12.8 10^3/uL (1.8-7.7); NEUTROPHILS % 74.5 % (41.0-85.0); WHITE BLOOD CELL 17.2 10^3/uL (4.5-11.0)
[2017-07-18 10:26] LABS: CARBON DIOXIDE 27.4 mmol/L (20.0-32)
[2017-07-18 16:21] LABS: SEGMENTED NEUTROPHILS 80 % (31-76)
[2017-07-18 16:22] LABS: DIFFERENTIAL COMMENT NORMAL; LYMPHOCYTE 16 % (25-36); MONOCYTE 4 % (3-9)
== END | disposition home or self-care (01) ==
LOC: LAB 09:32
PROVIDERS: ATTEND Nurse Practitioner Family
DX: K61.0 Anal abscess (principal)
CPT/HCPCS: 36415; 80053; 85025; 87040

== ENCOUNTER → 2017-12-06 | Outpatient (CLI) | payer OTHER ==
[~2017-12-06] MED LIST changes: -METF10002 PO; +METF10003 PO
--- NOTE | 2017-12-06 11:17 | DIREP ---
PROCEDURE:CHEST 2 VIEWS COMPARISON:None. INDICATIONS:D72.829 Elevated white blood cell count FINDINGS: LUNGS/PLEURA:No significant pulmonary parenchymal abnormalities. No effusions. VASCULATURE:Normal. Unremarkable pulmonary vasculature. CARDIAC:Normal. No cardiac silhouette abnormality or cardiomegaly. MEDIASTINUM:Normal. No visible mass or adenopathy. BONES:Normal. No fracture or visible bony lesion. OTHER:Negative. CONCLUSION:Normal chest examination. Dictated by: Taurus Perea M.D. on 12/06/2017 at 11:16 AM
== END | disposition home or self-care (01) ==
LOC: RAD 10:04
PROVIDERS: ATTEND Student in an Organized Health Care Education/Training Program
DX: D72.829 Elevated white blood cell count, unspecified (principal)
CPT/HCPCS: 71046

== ENCOUNTER → 2018-11-07 | Outpatient (CLI) | payer OTHER ==
[~2018-11-07] MED LIST changes: -METF10003 PO; +METF10007 PO
== END | disposition home or self-care (01) ==
LOC: SLAB 19:52
PROVIDERS: ATTEND Nurse Practitioner
DX: G47.33 Obstructive sleep apnea (adult) (pediatric) (principal); R09.02 Hypoxemia; R06.83 Snoring; R53.83 Other fatigue; I10 Essential (primary) hypertension; E11.8 Type 2 diabetes mellitus with unspecified complications; Z72.0 Tobacco use
CPT/HCPCS: 95810

== ENCOUNTER → 2018-12-28 | Outpatient (CLI) | payer OTHER ==
--- NOTE | 2018-12-31 09:11 | DIREP ---
PROCEDURE:US DUPLEX LOWER EXTREMITY ARTERY BILAT COMPARISON:None. INDICATIONS:PVD I73.9, COLD FEET TECHNIQUE:A comprehensive color duplex Doppler ultrasound examination of the bilateral lower extremities was performed. Color image and bidirectional spectral Doppler wave form analysis, and peak systolic flow measurements of the common femoral, profunda femoral, superficial femoral, and popliteal arteries were performed. Ankle/brachial indices were measured at the distal posterior tibial artery and anterior tibial/dorsalis pedis. FINDINGS: RIGHT LOWER EXTREMITY: PT ROBERT: 1.1 AT/DP ROBERT: 0.99. COMMON FEMORAL:105.7 cm/sTriphasic PROFUNDA FEMORIS:114.6 cm/sTriphasic SUPERFICIAL FEMORAL (prox):87.9 cm/sTriphasic SUPERFICIAL FEMORAL (mid):90.8 cm/sTriphasic SUPERFICIAL FEMORAL (dist):83.4 cm/sTriphasic POPLITEAL (prox):82.7 cm/sMonophasic POPLITEAL (dist):76.1 cm/sMonophasic POSTERIOR TIBIAL (prox):115.1 cm/sMonophasic POSTERIOR TIBIAL (mid):118.3 cm/sMonophasic POSTERIOR TIBIAL (dist):116.7 cm/sMonophasic PERONEAL (prox):102.2 cm/sMonophasic ANTERIOR TIBIAL (prox):61.8 cm/sTriphasic ANTERIOR TIBIAL (mid):76.2 cm/sTriphasic ANTERIOR TIBIAL (dist):66.9 cm/sTriphasic DORSALIS PEDIS:65.1 cm/sTriphasic LEFT LOWER EXTREMITY: PT ROBERT: 1.1 AT/DP ROBERT: 1.1. COMMON FEMORAL:119.4 cm/sTriphasic PROFUNDA FEMORIS:114.5 cm/sTriphasic SUPERFICIAL FEMORAL (prox):119.4 cm/sTriphasic SUPERFICIAL FEMORAL (mid):116.2 cm/sTriphasic SUPERFICIAL FEMORAL (dist):104.9 cm/sTriphasic POPLITEAL (prox):117.8 cm/sTriphasic POPLITEAL (dist):101.6 cm/sTriphasic POSTERIOR TIBIAL (prox):129.9 cm/sMonophasic POSTERIOR TIBIAL (mid):120.0 cm/sMonophasic POSTERIOR TIBIAL (dist):145.1 cm/sMonophasic PERONEAL (prox):151.6 cm/sTriphasic ANTERIOR TIBIAL (prox):97.9 cm/sMonophasic ANTERIOR TIBIAL (mid):109.5 cm/sMonophasic ANTERIOR TIBIAL (dist):70.3 cm/sMonophasic DORSALIS PEDIS:122.1 cm/sMonophasic A prominent but not technically enlarged node was imaged in the right groin. Subcutaneous edema is noted. CONCLUSION: No significant obstructive disease by ROBERT. 20-49% stenosis of the left peroneal artery. 0-19% stenosis of the left posterior tibial artery and dorsalis pedis. 0-19% stenosis of the right posterior tibial and peroneal arteries or tibioperoneal trunk. ABIs greater than 1.4 indicate noncompressible vessels, likely to have significant peripheral vascular disease (PVD). ABIs of 0.91 to 1.3 indicate no significant obstructive disease. ABIs of 0.41 to 0.90 indicate grade I claudication. ABIs less than 0.4 indicate limb-threatening ischemia of grade I or grade II. % stenosisPSV (cm/s)Velocity ratio0-19<150<[id number]>75>300>4 Dictated by: FELIPE Physician on 12/31/2018 at 08:19 AM ld
== END | disposition home or self-care (01) ==
LOC: RAD 14:45
PROVIDERS: ATTEND Podiatrist
DX: I73.9 Peripheral vascular disease, unspecified (principal)
CPT/HCPCS: 93922; 93925

== ENCOUNTER → 2019-03-25 | Outpatient (CLI) | payer OTHER ==
--- NOTE | 2019-03-25 16:08 | DIREP ---
PROCEDURE:US VENOUS IMAGING BILAT COMPARISON:None. INDICATIONS:BILATERAL CHRONIC LEG PAIN TECHNIQUE:The lower extremities were evaluated utilizing gonzalez scale images with segmental compression, color Doppler, and spectral Doppler with respiratory variation and augmentation. FINDINGS: RIGHT Common femoral vein:Patent Superficial femoral vein:Patent Popliteal vein:Patent Posterior tibial vein:Patent Peroneal vein: Patent Saphenofemoral junction:Patent Waveforms: Within normal limits. LEFT Common femoral vein:Patent Superficial femoral vein:Patent Popliteal vein:Patent Posterior tibial vein:Patent Peroneal vein: Patent Saphenofemoral junction:Patent Waveforms: Within normal limits. Edematous tissue identified in the bilateral posterior calf region. CONCLUSION:No DVT or other significant abnormality of the bilateral legs. Bilateral calf edema noted. Dictated by: FELIPE Physician on 03/25/2019 at 03:22 PM Read in [facility]
== END | disposition home or self-care (01) ==
LOC: RAD 13:55
PROVIDERS: ATTEND Nurse Practitioner
DX: R60.0 Localized edema (principal)
CPT/HCPCS: 93970

== ENCOUNTER → 2020-04-28 | Outpatient (CLI) | payer OTHER ==
[~2020-04-28] MED LIST changes: +LEXISCAN IV ONE
--- NOTE | 2020-04-28 15:31 | PCM.ECHO ---
APPROVED REPORT EXAM: Comprehensive 2D, Doppler, and color-flow Echocardiogram. Patient Location: OUT-PATIENT Rhythm: NSR Indications ABN EKG, PRE OP 2D Dimensions LVOT Diameter 2.52 (1.8-2.4cm) LVEF(%) 59.19 (>50%) M-Mode Dimensions RVDd 1.35 (2.1-3.2cm) Left Atrium(MM) 5.30 (2.5-4.0cm) IVSd 1.95 (0.7-1.1cm) Aortic Root 4.10 (2.2-3.7cm) LVDd 5.70 (4.0-5.6cm) Aortic Cusp Exc 2.00 (1.5-2.0cm) PWd 1.85 (0.7-1.1cm) MV EPSS 0.82 (<0.5cm) IVSs 2.10 cm FS (%) 37.50 % LVDs 3.55 (2.0-3.8cm) ESV(Teich) 53.34 ml PWs 1.90 cm LVEF(%) 66.83 (>50%) Volumes Biplane 2D LV Volumes Biplane 2D LA Volumes LVEDv A4C 275.25 mL LA ESV Index LVESv A4C 112.33 mL Aortic Valve AoV Peak Rudi. 1.55 m/s AoV VTI 32.45 cm AO Peak GR. 9.90 mmHg AO Mean GR. 6.15 mmHg LVOT VTI 26.32 cm LVOT Peak Rudi. 1.02 m/s SHAKILA(VTI)/BSA 4.06 cm2/m2 SHAKILA (VTI) 4.06 cm2 Mitral Valve MV E Velocity 0.90m/s MR Peak Gr. 3.55mmHg MV A Velocity 0.85m/s TDI Lateral E' P. V 0.15m/s Medial E' P. V 0.05m/s Pulmonary Valve PV Peak Velocity 0.90m/s PV Peak Grad. 3.25mmHg RVOT VTI 21.58cm LEFT VENTRICLE The left ventricle is normal size. The left ventricular systolic function is normal. The left ventricular ejection fraction is within the normal range. There is normal left ventricular wall thickness. There is normal LV segmental wall motion. There is no ventricular septal defect visualized. No left ventricle thrombus noted on this study. LVEF is 55-60%. RIGHT VENTRICLE The right ventricle is normal size. The right ventricular systolic function is normal. There is normal right ventricular wall thickness. ATRIA The left atrium size is normal. The right atrium size is normal. Interatrial septum not well visualized. AORTIC VALVE Aortic valve is not well visualized. There is no aortic valvular stenosis. No aortic regurgitation is present. MITRAL VALVE The mitral valve is normal in structure. There is no mitral valve stenosis. There is no mitral valve regurgitation noted. TRICUSPID VALVE The tricuspid valve is normal in structure. There is no tricuspid valve stenosis. PULMONIC VALVE Pulmonic valve is not well visualized. There is no pulmonic valvular stenosis. There is no pulmonic valvular regurgitation. GREAT VESSELS The aortic root is normal in size. Pulmonary artery is not well visualized. Aortic arch is not well visualized. IVC is not well visualized. PERICARDIUM There is no pericardial effusion. Other Information Study Quality: Fair <Conclusion> The left ventricular systolic function is normal. LVEF is 55-60%. Electronically signed by : JORDI PACE. 04/28/2020 15:30:50
== END | disposition home or self-care (01) ==
LOC: RAD 12:24
PROVIDERS: ATTEND Internal Medicine Interventional Cardiology
DX: R94.31 Abnormal electrocardiogram [ECG] [EKG] (principal); Q25.49 Other congenital malformations of aorta
CPT/HCPCS: 93017; 93306

== ENCOUNTER 2022-01-15 14:35 | Emergency (ER) | payer OTHER ==
[~2022-01-15] VITALS: Ht 200.7 cm; Wt 208.7 kg
[~2022-01-15 14:35] MED LIST changes: -LEXISCAN IV ONE
--- NOTE | 2022-01-15 14:42 | NUR ---
ARRIVAL PT ARRIVED AMBULATORY TO ED 4 WITH C/O A LAC ON THE TIP OF HIS NOSE AFTE FALLING ON A CHAIN LINK FENCE. VITALS TAKEN AND NOTIFIED.
[2022-01-15 14:48] VITALS: BP 163/83
[2022-01-15] MEDS ORDERED: LIDOCAINE 1% VIAL ONE (16:24)
[2022-01-15] MEDS ORDERED: LIDOCAINE 1% VIAL SQ ONE (16:30)
[2022-01-15] MEDS ORDERED: BACTROBAN OINTMENT TP STA (16:51)
--- NOTE | 2022-01-15 16:51 | ER.PDOC ---
General Chief Complaint: General Complaint Stated Complaint: NOSE INJURY Time seen by MD: 15:13 Source: patient Exam Limitations: no limitations History of Present Illness Initial Comments Patient is a 56-year-old male with a no reported past medical history who presents with a nasal laceration after a fall onto a fence. Patient states that he was outside when he tripped and fell onto a fence and it caused a 3 cm laceration to the under sideOf his nose.Patient states that he initially had sharp pain that is nonradiating made worse with palpation better with rest. States that he lost some minimal blood but the blood stopped.Patient states that there were no other injuries and it was not a blunt force but just a cut to the bottom of the nose. Patient denies any pain with palpation of the nasal bridge.Patient denies any other symptoms at this time. Past medical history as above Social history patient denies tobacco alcohol drug use Family history noncontributory Meds and allergies reviewed Occurred: just prior to arrival Severity: mild Context: fall Associated Symptoms: No Loss of Consciousness Remembers: injury Allergies: Coded Allergies: No Known Allergies (Unverified , 05/03/17) Home Meds Active Scripts Metronidazole (FLAGYL) 500 Mg Tablet, 1 TAB PO TID, #21 TAB 0 Refills Prov:LYDIA WAYNE MD 05/09/17 Ciprofloxacin Hcl (CIPRO) 500 Mg Tablet, 500 MG PO BID, #14 TABLET 0 Refills Prov:LYDIA WAYNE MD 05/09/17 Reported Medications Glyburide (GLYBURIDE) 5 Mg Tablet, 1 TAB PO BID, #180 TAB 3 Refills 05/03/17 Losartan/Hydrochlorothiazide (LOSARTAN-HCTZ 100-25 MG TAB) 1 Each Tablet, 1 TAB PO DAILY, #90 TAB 3 Refills 05/03/17 Metformin Hcl (METFORMIN HCL) 1,000 Mg Tablet, 1 TAB PO BID, #180 TAB 3 Refills 05/03/17 Past Medical History Medical History: diabetes, hypertension Surgical History: appendectomy Family History Significant Family History: no pertinent family hx Social History Smoking: non-smoker Alcohol Use: rarely Drug Use: none Review of Systems Constitutional: denies no symptoms reported, denies see HPI, denies chills, denies diaphoresis, denies fever, denies malaise, denies weakness, denies other Eyes: denies no symptoms reported, denies see HPI, denies blindness, denies blurred vision, denies drainage, denies decreased acuity, denies foreign body sensation, denies inflammation, denies pain, denies photophobia, denies previous injury, denies shadows, denies tunnel vision, denies vision change, denies contact lenses, denies glasses, denies other Ears: denies no symptoms reported, denies see HPI, denies dizziness, denies pain, denies tinnitus, denies bloody discharge, denies clear discharge, denies purulent discharge, denies serosanguinous discharge, denies previous injury, denies other Nose: other (Laceration to the bottom aspect of his nose) Mouth: denies no symptoms reported, denies see HPI, denies clots, denies loose teeth, denies pain, denies swelling, denies bloody discharge, denies clear discharge, denies purulent discharge, denies serosanguinous discharge, denies p revious injury, denies other Throat: denies no symptoms reported, denies see HPI, denies pain, denies swel ling, denies discharge, denies neck stiffness, denies aphonia, denies hoarse, denies muffled, denies painful swallowing, denies difficulty with fluids, denies previous injury, denies other Respiratory: denies no symptoms reported, denies see HPI, denies cough, denies orthopnea, denies shortness of breath, denies stridor, denies wheezing, denies other Cardiovascular: denies no symptoms reported, denies see HPI, denies chest pain, denies edema, denies irregular heart rate, denies lightheadedness, denies palpitations, denies syncope, denies other Gastrointestinal: denies no symptoms reported, denies see HPI, denies abdominal pain, denies constipation, denies diarrhea, denies nausea, denies vomiting, denies other Genitourinary: denies no symptoms reported, denies see HPI, denies discharge, denies dysuria, denies frequency, denies hematuria, denies pain, denies other Musculoskeletal: denies no symptoms reported, denies see HPI, denies back pain, denies gout, denies joint pain, denies joint swelling, denies muscle pain, denies muscle stiffness, denies neck pain, denies other Skin: other (3 cm laceration to the bottom of the of the nose) Psychiatric/Neurological: denies no symptoms reported, denies see HPI, denies anxiety, denies depressed, denies emotional problems, denies cognitive dysfunction, denies headache, denies numbness, denies petit mal seizures, denies tingling, denies tonic-clonic seizures, denies unable to move lower ext, denies unable to move upper ext, denies weakness, denies other Physical Exam General Appearance: alert, no distress Head: non-tender, no swelling, no obvious trauma Neck: non-tender, painless ROM Eyes: lids nml, conjunctivae nml, PERRL, EOMI ENT: laceration (3 cm laceration to the bottom of the nose bleeding well contr olled) Neuro/Psych: oriented x 3, sensation nml, motor nml, CN's nml as tested, mood/affect nml Respiratory: chest non-tender, no resp distress CVS: heart sounds nml, reg. rate & rhythm Abdomen: non-tender Skin: intact, nml palp (Outside of nasal bridge) ED LACERATION WOUND REPAIR # of Wounds/Lacerations Presen: 1 Wound Location & Length (Requi: low nose Wound Length (cm): 3 Wound cleaned: betadine Distal NVT: neuro intact, vasc intact Anesthesia type: local Anesthesia: 1% Lidocaine Volume Anesthetic (ccs): 3 Wound's Depth, Shape: superficial, linear Irrigated w/ Saline (ccs): 150 Wound Explored: no foreign body removed Wound Debrided: minimal Wound Repaired With: sutures Suture Size/Type: 5:0 (Vicryl) Suture Style: interupted Number of Sutures: 4 Layer Closure?: No Retention sutures placed: No Sterile Dressing Applied?: No Results/Orders Results/Orders Orders - TERESA MART MD Lidocaine Hcl (Lidocaine 1% Vial) (01/15/22 16:30) Lidocaine Hcl (Lidocaine 1% Vial) (01/15/22 16:24) Vital Signs Date Time Temp Pulse Resp B/P (MAP) Pulse Ox O2 Delivery O2 Flow Rate FiO2 01/15/22 14:48 98.3 103 18 01/15/22 14:48 98.3 103 18 163/83 (109) 92 Room Air* 0 21 01/15/22 14:48 98.3 103 18 92 Progress Progress Patient is here after a fall with a nasal laceration. Laceration is 3 cm we will plan to close those sutures and update tetanus.Patient otherwise without injury was not a direct BelowSo no imaging needed. 1653reassessmentpatient much better will apply bacitracin to wound was able to suture please see that portion of the note patient will follow-up with primary care provider within the next week. Patient voiced understanding of return to ER precautions and when to follow-up.Trauma tertiary exam negative ER DEPART Departure Time of Disposition: 16:55 Disposition: 01 HOME / SELF CARE / HOMELESS Impression: Primary Impression: Laceration of face Additional Impression: Fall Condition: Improved Patient Instructions: Laceration Care, Adult, [id number] Referrals: SONNY BELL [facility]OT [facility]EDER (PCP) PRIMARY CARE PROVIDER Additional Instructions: Please follow-up with your primary care provider within 7 days to have them evaluate the wound and possibly remove the sutures. If you have any new persistent worsening symptoms or concerns please seek emergent medical attention. Duration or Time Spent with Pa: 40 Problem Qualifiers TERESA MART MD Jan 15, 2022 16:51
[2022-01-15] MEDS ORDERED: BACTROBAN TP ONE (16:56)
[2022-01-15] MEDS ORDERED: BOOSTRIX IM ONE ×2 (16:56→17:00)
[2022-01-15 16:57] VITALS: BP 166/88
== END 2022-01-15 17:01 | disposition home or self-care (01) ==
LOC: ER 14:35
DX: S01.21XA Laceration without foreign body of nose, initial encounter (principal); E11.9 Type 2 diabetes mellitus without complications; I10 Essential (primary) hypertension; W01.0XXA Fall on same level from slipping, tripping and stumbling without subsequent striking against object, initial encounter; Y93.89 Activity, other specified; Y92.89 Other specified places as the place of occurrence of the external cause; Y99.8 Other external cause status; Z90.89 Acquired absence of other organs; Z90.49 Acquired absence of other specified parts of digestive tract
CPT/HCPCS: 99283; 90471; 12013; 90715; J2001